=== PATIENT | male | born 1945 | race Caucasian/White ===

== ENCOUNTER 2018-01-26 13:06 | Outpatient (CLI) | payer MEDICARE ==
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
--- NOTE | 2018-01-26 15:28 | CT ---
CT BRAIN WITHOUT CONTRAST: HISTORY: Bilateral headache. FINDINGS: Comparison is made with the exam of 06/16/12. There are changes of cortical atrophy. The ventricular size is appropriate and the basilar cisterns are patent. No evidence of infract, hemorrhage, midline shift, or abnormal extraaxial fluid collecti ons is seen. There are postop changes in the craniocervical region and the cervical spine. No acute abnormalities are seen. There are postop changes in the left ethmoid air cells. IMPRESSION: No CT evidence of acute intracranial process. POS: [facility]
== END 2018-01-26 13:07 | disposition home or self-care (01) ==
LOC: TBSIIMAG 13:06
PROVIDERS: ATTEND Neurological Surgery
DX: R51 Headache (principal); Z98.1 Arthrodesis status
CPT/HCPCS: 70450; 72050

== ENCOUNTER 2018-07-25 10:05 | Day surgery (SDC) | payer MEDICARE ==
[2018-07-25 11:05] LABS: #Basophils 0.1 thou/uL (0.0-0.2); #Lymphocytes 1.6 thou/uL (1.20-3.40); #Monocytes 0.5 thou/uL (0.11-0.59); #Neutrophils 4.8 thou/uL (1.40-6.50); %Basophils 0.8 % (0.0-1.0); %Eosinophils 0.7 % (0.0-10.0); %Lymphocytes 23.2 % (21.0-51.0); %Neutrophils 68.4 % (42.0-75.0); Hemoglobin 12.7 g/dL (14.0-18.0); Mean Corpuscular HGB CONC 32.9 g/dL (32.0-36.0); Mean Corpuscular Hemoglobin 29.3 pg (27.0-31.0); Mean Corpuscular Volume 89.2 fL (78.0-98.0); Mean Platelet Volume 6.9 fL (7.4-10.4); Platelet Count 297 thou/uL (130-400); RBC Distribution Width 12.3 % (11.5-14.5); Red Blood Cell (RBC) Count 4.34 mill/uL (4.70-6.10)
[2018-07-25] MEDS ORDERED: CEFAZOLIN 2 GM/50 ML BAG ONE (11:12)
[2018-07-25 11:22] LABS: Anion Gap 18 mmol/L (10-20); BUN (Urea Nitrogen) 15 mg/dL (8.4-25.7); Calc. Creatinine Clearance 0 mL/min (70-130); Calcium 9.6 mg/dL (7.8-10.44); Carbon Dioxide 20 mmol/L (23-31); Chloride 104 mmol/L (98-107); Estimated GFR-MDRD Greater than 90; Glucose 148 mg/dL (83-110); Potassium 3.6 mmol/L (3.5-5.1); Sodium 138 mmol/L (136-145)
[2018-07-25] MEDS ORDERED: Fentanyl 100 MCG/2 ML VIAL ONE (11:58)
--- NOTE | 2018-07-25 15:06 | EKG ---
Test Reason : PREOP Blood Pressure : / mmHG Vent. Rate : 094 BPM Atrial Rate : 094 BPM P-R Int : 136 ms QRS Dur : 146 ms QT Int : 404 ms P-R-T Axes : 082 082 046 degrees QTc Int : 505 ms Normal sinus rhythm Right bundle branch block Abnormal ECG Confirmed by STACI COELLO ([id number]) on 07/25/2018 3:06:06 PM Referred By: CATHI Confirmed By:STACI COELLO
--- NOTE | 2018-07-25 18:26 | OP ---
DATE OF PROCEDURE: 07/25/2018 SURGEON: Oleg Bedoya MD TARIFF COMPILING CLERK: Gwen Ferrara PA-C PROCEDURE: Replacement of programmable morphine pump. PROCEDURE IN DETAIL: The patient was brought into the operating room and intubated, positioned in la teral decubitus position. The left abdominal region was prepped and draped in sterile fashion and a previous incision for the morphine pump was reopened and the pump identified. The catheter was disco nnected from the pump. The suture was then removed from the catheter. A small part of this cuff had eroded, but the bulk of the cuff was still intact. We reattached the cuff to the pump, secured it w ith a 2-0 silk suture, and then placed the new pump into the pouch without difficulty. This was exte nsively irrigated with Bacitracin irrigation. Vancomycin powder was applied and the wound was then c losed in anatomic layers.
== END 2018-07-25 15:55 | disposition home or self-care (01) ==
LOC: SDC 10:05
PROVIDERS: ATTEND Neurological Surgery
PROC: 0JPT0VZ Removal of Infusion Pump from Trunk Subcutaneous Tissue and Fascia, Open Approach (ICD-10-PCS; principal; 2018-07-25)
PROC: 0JH70VZ Insertion of Infusion Pump into Back Subcutaneous Tissue and Fascia, Open Approach (ICD-10-PCS; 2018-07-25)
DX: Z45.1 Encounter for adjustment and management of infusion pump (principal); G89.29 Other chronic pain; M54.9 Dorsalgia, unspecified; I25.10 Atherosclerotic heart disease of native coronary artery without angina pectoris; E11.22 Type 2 diabetes mellitus with diabetic chronic kidney disease; N18.9 Chronic kidney disease, unspecified; Z79.84 Long term (current) use of oral hypoglycemic drugs; Z79.899 Other long term (current) drug therapy
CPT/HCPCS: 36415; 36416; 80048; 85025; 93005; 93010; C1772; J3010; J3370

== ENCOUNTER 2019-04-11 00:42 | Inpatient (IN) | payer MEDICARE ==
[2019-04-11] MEDS ORDERED: hydrALAZINE 20 MG/ML VIAL SLOW IVP PRN (07:53)
[2019-04-11] MEDS ORDERED: Loratadine 10 MG TAB PO PRN (07:53)
[2019-04-11] MEDS ORDERED: Acetaminophen 325 MG TAB PO PRN (07:53)
[2019-04-11] MEDS ORDERED: Diabetic Tussin 200 MG/10 ML UDCUP PO PRN (07:53)
[2019-04-11] MEDS ORDERED: Dextrose 5% in Water 1,000 ML IV PRN (07:53)
[2019-04-11] MEDS ORDERED: Guaifenesin DM 100-10/5 ML UDCUP PO PRN (07:53)
[2019-04-11] MEDS ORDERED: Calcium Carbonate 500 MG ChewTAB PO PRN (07:53)
[2019-04-11] MEDS ORDERED: Ondansetron PF 4 MG/2 ML Vial IVP PRN (07:53)
[2019-04-11] MEDS ORDERED: Loperamide HCl 2 MG CAP PO PRN (07:53)
[2019-04-11] MEDS ORDERED: Cepastat Lozenges 1 LOZ PO PRN (07:53)
[2019-04-11] MEDS ORDERED: Ondansetron ODT 4 MG TAB PO PRN (07:53)
[2019-04-11] MEDS ORDERED: HYDROcodone/Acetaminophen 5/325 mg Tablet PO PRN (07:53)
[2019-04-11] MEDS ORDERED: Senokot S 8.6-50 MG TAB PO PRN (07:53)
[2019-04-11] MEDS ORDERED: Sodium Chloride 0.65% Nasal 44 ML BOT EA NARE PRN (07:53)
[2019-04-11] MEDS ORDERED: Bisacodyl 10 MG SUPP PR PRN (07:53)
[2019-04-11] MEDS ORDERED: Dextrose 50% Abboject 50 ML SYRINGE SLOW IVP PRN (07:53)
[2019-04-11] MEDS ORDERED: Zolpidem Tartrate 5 MG TAB PO PRN (07:53)
[2019-04-11] MEDS ORDERED: Metoprolol Tartrate 25 MG TAB ONE (10:06)
[2019-04-11] MEDS ORDERED: Cyclobenzaprine 10 MG TAB ONE (10:06)
[2019-04-11] MEDS ORDERED: Famotidine 20 MG TAB ONE (10:06)
[2019-04-11] MEDS ORDERED: HumaLOG 300 UNITS/3 ML VIAL ONE (10:15)
[2019-04-11] MEDS: HumaLOG 300 UNITS/3 ML VIAL SC PRN ×3 (10:19→16:42)
[2019-04-11] MEDS: Tamsulosin HCl 0.4 MG CAP PO SCH (10:23)
[2019-04-11] MEDS: Rosuvastatin 10 MG TAB PO SCH ×2 (10:23→20:17)
[2019-04-11] MEDS: Famotidine 20 MG TAB PO SCH (10:23)
[2019-04-11] MEDS: Cyclobenzaprine 10 MG TAB PO SCH ×3 (10:24→20:20)
[2019-04-11] MEDS: Metoprolol Tartrate 25 MG TAB PO SCH ×2 (10:24→20:16)
[2019-04-11] MEDS ORDERED: PHARMACY TO DOSE VANCOMYCIN IVPB PRN (11:17)
[2019-04-11] MEDS ORDERED: Vancomycin HCl 500 MG in Sodium Chloride 0.9% 100 ML IVPB SCH (11:45)
--- NOTE | 2019-04-11 12:53 | HP ---
PRIMARY CARE PHYSICIAN: Dr. Pearson. REASON FOR ADMISSION: Cellulitis over morphine pump. HISTORY OF PRESENT ILLNESS: A 73-year-old male who has multiple medical problems, who went to [facility] with a complaint of pain and swelling and erythema and warmth over morphine pump site. He was also having vague chest discomfort at [facility]. The patient reports that he had morphine pump placed recently by Dr. Bedoya, and since then he is experiencing little discomfort over his morphine pump site. He noticed some erythema, redness for last 2 to 3 days. He denies any fever or chills. He has diffuse pain, which is controlled with his chronic pain medication. The patient reports that he went to see his primary care physician who prescribed antibiotic therapy, but he never took it. The patient was given vancomycin at other emergency room and subsequently he was transferred to our hospital. REVIEW OF SYSTEMS: CONSTITUTIONAL: Negative for weight loss or gain, ability to conduct usual activities. SKIN: Negative for rash, itching. EYES: Negative for double vision, pain. ENT/MOUTH: Negative for nose bleeding, neck stiffness, pain, tenderness. CARDIOVASCULAR: Negative for palpitations, dyspnea on exertion, orthopnea. RESPIRATORY: Negative for shortness of breath, wheezing, cough, hemoptysis, fever or night sweats. GASTROINTESTINAL: Negative for poor appetite, abdominal pain, heartburn, nausea, vomiting, constipation, or diarrhea. GENITOURINARY: Negative for urgency, frequency, dysuria, nocturia. MUSCULOSKELETAL: Negative for pain, swelling. NEUROLOGIC/PSYCHIATRIC: Negative for anxiety, depression. ALLERGY/IMMUNOLOGIC: Negative for skin rash, bleeding tendency. Please see my HPI for pertinent positives and negatives. All other review of systems reviewed and negative except as mentioned in HPI. PAST MEDICAL HISTORY: Coronary artery disease, hypertension, diabetes type 2, sick sinus syndrome with pacemaker, chronic obstructive pulmonary disease, chronic pain disorder, benign enlargement of prostate, chronic anticoagulation, dyslipidemia. PAST SURGICAL HISTORY: Tonsillectomy, cervical spine surgery, morphine pump placement, pacemaker placement, six lumbar surgeries, appendicectomy. ALLERGIES: NO KNOWN DRUG ALLERGIES. FAMILY HISTORY: No strong family history of premature coronary artery disease, stroke, or cancer. SOCIAL HISTORY: The patient is a former smoker. He denies any illicit drug abuse. He drinks alcohol occasionally. CURRENT HOME MEDICATIONS: 1. Flexeril 10 mg t.i.d. p.r.n. 2. Glipizide 10 mg b.i.d. 3. Morphine pump. 4. Omeprazole 20 mg daily. 5. Oxycodone 10 mg b.i.d. 6. Lyrica 300 mg p.o. b.i.d. 7. Crestor 10 mg p.o. b.i.d. 8. Flomax 0.4 mg p.o. daily. 9. Metoprolol tartrate 12.5 mg twice daily. 10. Xarelto 20 mg p.o. daily. EMERGENCY ROOM COURSE: The patient has received vancomycin. PHYSICAL EXAMINATION: VITAL SIGNS: Currently, blood pressure 129/79, pulse 76, respiratory rate 18, temperature 97.6, saturation 97% on room air. Weight 81.6 kg. GENERAL: The patient is currently alert, awake. No obvious acute distress. HEENT: Head; normocephalic, atraumatic. Eyes; pupils round, reactive to light. Extraocular muscle intact. ENT: Oropharynx within normal limits. Moist mucous membranes. No oral lesion. No pharyngeal erythema. No exudate. NECK: Supple. No JVD. No thyromegaly. No carotid bruit. No jugular venous distention. LUNGS: Clear to auscultation without any rhonchi or rales. CARDIAC: S1, S2. Appears regular without any murmur. No gallop. No rub. ABDOMEN: The patient does have morphine pump on the right lower quadrant which has superficial skin tenderness and erythema and warmth. Some excoriation noted. BACK: Unremarkable. EXTREMITIES: Upper extremities; passive movement of all joints are normal. Lower extremities; no edema. Good distal pulsation. SKIN: As mentioned above. The patient does have some excoriation, mild warmth and erythema over morphine pump site. HEMATOLOGIC: No lymphadenopathy. PSYCHIATRIC: Normal affect. SIGNIFICANT LABORATORY DATA: CBC: WBC 7.4, hemoglobin 10.3, platelets 246. BMP: Sodium 140, potassium 4.0, chloride 105, carbon dioxide 21, BUN 24, creatinine 1.58, glucose 341, calcium 8.4. LFT: AST 11, ALT 9, alkaline phosphatase 89, albumin 3.7. Troponin 0.013. BNP 28.1. IMAGING DATA: Chest x-ray based on my review, no acute cardiopulmonary process. ASSESSMENT AND PLAN: 1. Acute kidney failure. The patient's creatinine is elevated. At this point, we will continue IV fluid at 75 mL/hour and we will repeat BMP tomorrow. 2. Cellulitis over morphine pump site. The patient does have erythema, excoriation, and some tenderness and warmth. The patient does not have any fever. Does not have any leukocytosis. We will check CRP tomorrow. We will consult Dr. Umaña for his opinion. Meanwhile, I will continue with vancomycin. 3. Diabetes type 2, not well controlled. We will start glipizide 10 mg p.o. b.i.d. and insulin as per sliding scale protocol. Diabetic diet will be given. 4. Benign enlargement of prostate. Flomax 0.4 mg p.o. daily. 5. Dyslipidemia. Continue Crestor 10 mg b.i.d. 6. Chronic anticoagulation. Continue Xarelto 20 mg p.o. daily. 7. Chronic pain disorder. The patient will continue morphine pump, oxycodone, Lyrica as per home dosage. 8. Deep venous thrombosis prophylaxis. The patient is already on Xarelto therapy. 9. Gastrointestinal prophylaxis. Pepcid 20 mg p.o. b.i.d. CODE STATUS: The patient is full code. The patient does not have any surrogate decision maker. DISPOSITION PLAN: Based on clinical course, we are expecting the patient's stay in hospital more than 2 midnights. Plan of care discussed with the patient in detail. Job ID: [id number]
[2019-04-11] MEDS: oxyCODONE 5 MG TAB PO SCH ×2 (13:39→20:20)
[2019-04-11] MEDS: Pregabalin 75 MG CAP PO SCH ×2 (13:42→20:15)
[2019-04-11] MEDS: Sodium Chloride 0.9% 1,000 ML IV SCH (13:46)
[2019-04-11] MEDS: glipiZIDE 10 MG TAB PO SCH (15:06)
[2019-04-11] MEDS: Rivaroxaban 10 MG TAB PO SCH (16:43)
[2019-04-11] MEDS ORDERED: Nystatin Powder 15 GM BOT TOP PRN (17:40)
[2019-04-11] MEDS: Vancomycin HCl 1.5 GM in Sodium Chloride 0.9% 250 ML 300 ML IVPB SCH (20:15)
[2019-04-12] MEDS: Sodium Chloride 0.9% 1,000 ML IV SCH ×3 (01:42→20:01)
[2019-04-12 06:54] LABS: #Eosinphils 0.3 thou/uL (0.0-0.7); #Lymphocytes 2.8 thou/uL (1.20-3.40); #Monocytes 0.6 thou/uL (0.11-0.59); #Neutrophils 4.4 thou/uL (1.40-6.50); %Basophils 0.6 % (0.0-1.0); %Eosinophils 4.2 % (0.0-10.0); %Lymphocytes 33.8 % (21.0-51.0); %Monocytes 7.7 % (0.0-10.0); %Neutrophils 53.7 % (42.0-75.0); Hemoglobin 10.6 g/dL (14.0-18.0); Mean Corpuscular HGB CONC 31.1 g/dL (32.0-36.0); Mean Corpuscular Volume 86.7 fL (78.0-98.0); Mean Platelet Volume 7.6 fL (7.4-10.4); Platelet Count 271 thou/uL (130-400); Red Blood Cell (RBC) Count 3.92 mill/uL (4.70-6.10); White Blood Cell (WBC) Count 8.2 thou/uL (4.8-10.8)
[2019-04-12 07:13] LABS: Anion Gap 12 mmol/L (10-20); BUN (Urea Nitrogen) 14 mg/dL (8.4-25.7); Calc. Creatinine Clearance 32 mL/min (70-130); Calcium 9.3 mg/dL (7.8-10.44); Carbon Dioxide 23 mmol/L (23-31); Chloride 111 mmol/L (98-107); Estimated GFR-MDRD 69; Glucose 116 mg/dL (83-110); Potassium 4.3 mmol/L (3.5-5.1); Sodium 142 mmol/L (136-145)
[2019-04-12] MEDS: glipiZIDE 10 MG TAB PO SCH ×2 (09:33→16:30)
[2019-04-12] MEDS: Rosuvastatin 10 MG TAB PO SCH ×3 (09:33→20:08)
[2019-04-12] MEDS: Cyclobenzaprine 10 MG TAB PO SCH ×3 (09:33→20:07)
[2019-04-12] MEDS: Tamsulosin HCl 0.4 MG CAP PO SCH (09:33)
[2019-04-12] MEDS: Famotidine 20 MG TAB PO SCH (09:33)
[2019-04-12] MEDS: Metoprolol Tartrate 25 MG TAB PO SCH ×2 (09:34→20:07)
[2019-04-12] MEDS: oxyCODONE 5 MG TAB PO SCH ×2 (09:34→20:06)
[2019-04-12] MEDS: Pregabalin 75 MG CAP PO SCH ×2 (09:35→20:05)
--- NOTE | 2019-04-12 12:09 | PDOC.PN ---
- Subjective Encounter Start Date: 04/12/19 Encounter Start Time: 08:40 -: old records requested/rev Patient seen and examined. No new complaints. No overnight events - Objective Resuscitation Status - Order Detail: 04/11/19 07:53 Resuscitation Status Routine Resuscitation Status: FULL: Full Resuscitation MAR Reviewed: Yes Vital Signs & Weight: Vital Signs (12 hours) Temp Pulse Resp BP BP Pulse Ox 04/12/19 09:30 92 L 04/12/19 07:50 97.6 F 83 16 120/82 92 L 04/12/19 04:00 98.1 F 94 18 118/70 93 L 04/12/19 00:46 97.3 F L 98 20 121/70 Weight Weight 81 lb 6 oz I&O: 04/11/19 04/12/19 04/13/19 06:59 06:59 06:59 Intake Total 1600 Balance 1600 Result Diagrams: 04/12/19 06:11 04/12/19 06:11 Additional Labs: Accuchecks 04/12/19 04/11/19 04/11/19 04:47 19:45 16:35 POC Glucose 107 109 425 H 04/11/19 15:03 POC Glucose 507 H Phys Exam - Physical Examination Constitutional: NAD HEENT: PERRLA, moist MMs, sclera anicteric Neck: no JVD, supple Respiratory: no wheezing, no rales, no rhonchi Cardiovascular: RRR, no significant murmur, no rub Gastrointestinal: soft, non-tender, no distention, positive bowel sounds wound covered with dressing Musculoskeletal: no edema, pulses present Neurological: non-focal, normal sensation, moves all 4 limbs Lymphatic: no nodes Psychiatric: normal affect, A&O x 3 Skin: no rash, normal turgor Dx/Plan (1) YOSI (acute kidney injury) Code(s): N17.9 - ACUTE KIDNEY FAILURE, UNSPECIFIED Status: Acute (2) Cellulitis Code(s): L03.90 - CELLULITIS, UNSPECIFIED Status: Acute (3) Anemia, normocytic normochromic Code(s): D64.9 - ANEMIA, UNSPECIFIED Status: Chronic (4) BPH (benign prostatic hyperplasia) Code(s): N40.0 - BENIGN PROSTATIC HYPERPLASIA WITHOUT LOWER URINRY TRACT SYMP Status: Chronic (5) Chronic anticoagulation Code(s): Z79.01 - ALF (CURRENT) USE OF ANTICOAGULANTS Status: Chronic (6) Chronic pain disorder Code(s): G89.4 - CHRONIC PAIN SYNDROME Status: Chronic (7) Chronic stage c diastolic heart failure Code(s): I50.32 - CHRONIC DIASTOLIC (CONGESTIVE) HEART FAILURE Status: Chronic (8) Diabetes type 2, uncontrolled Code(s): E11.65 - TYPE 2 DIABETES MELLITUS WITH HYPERGLYCEMIA Status: Chronic (9) Dyslipidemia Code(s): E78.5 - HYPERLIPIDEMIA, UNSPECIFIED Status: Chronic (10) GERD (gastroesophageal reflux disease) Code(s): K21.9 - GASTRO-ESOPHAGEAL REFLUX DISEASE WITHOUT ESOPHAGITIS Status: Chronic (11) Pacemaker Code(s): Z95.0 - PRESENCE OF CARDIAC PACEMAKER Status: Chronic - Plan cont current plan of care, continue antibiotics * continue vancomycin * follow culture * ID consulted * wound care * medication reconciled * medication reviewed as below * symptomatic treatment * pain controlled. Review of Systems - Review of Systems ENT: negative: Ear Pain, Ear Discharge, Nose Pain, Nose Discharge, Nose Congestion, Mouth Pain, Mouth Swelling, Throat Pain, Throat Swelling, Other Respiratory: negative: Cough, Dry, Shortness of Breath, Hemoptysis, SOB with Excertion, Pleuritic Pain, Sputum, Wheezing Cardiovascular: negative: chest pain, palpitations, orthopnea, paroxysmal nocturnal dyspnea, edema, light headedness, other Gastrointestinal: negative: Nausea, Vomiting, Abdominal Pain, Diarrhea, Constipation, Melena, Hematochezia, Other Genitourinary: negative: Dysuria, Frequency, Incontinence, Hematuria, Retention , Other Musculoskeletal: negative: Neck Pain, Shoulder Pain, Arm Pain, Back Pain, Hand Pain, Leg Pain, Foot Pain, Other - Medications/Allergies Allergies/Adverse Reactions: Allergies Allergy/AdvReac Type Severity Reaction Status Date / Time No Known Allergies Allergy Unverified 03/24/19 07:58 Medications: Current Medications Acetaminophen (Tylenol) 650 mg PO Q4H PRN PRN Reason: Headache/Fever/Mild Pain (1-3) Hydrocodone Bitart/Acetaminophen ([place] 5/325) 1 tab PO Q4H PRN PRN Reason: Moderate Pain (4-6) Bisacodyl (Dulcolax) 10 mg CO DAILYPRN PRN PRN Reason: Constipation Calcium Carbonate (Tums) 1,000 mg PO Q4H PRN PRN Reason: Heartburn or Indigestion Cyclobenzaprine HCl (Flexeril) 10 mg PO TID [facility] Last Admin: 04/12/19 09:33 Dose: 10 mg Dextrose/Water (Dextrose 50%) 25 gm SLOW IVP PRN PRN PRN Reason: Hypoglycemia Famotidine (Pepcid) 20 mg PO Q24HR [facility] Last Admin: 04/12/19 09:33 Dose: 20 mg Glipizide (Glucotrol) 10 mg PO BID-AC [facility] Last Admin: 04/12/19 09:33 Dose: 10 mg Glucagon (Glucagon) 1 mg IM PRN PRN PRN Reason: Hypoglycemia Guaifenesin (Robitussin Sf) 200 mg PO Q4H PRN PRN Reason: Cough Guaifenesin/Dextromethorphan (Robitussin Dm) 15 ml PO Q4H PRN PRN Reason: Cough Hydralazine HCl (Apresoline) 10 mg SLOW IVP Q4H PRN PRN Reason: SBP > 180 and HR < 70 Dextrose/Water (D5w) 1,000 mls @ 0 mls/hr IV .Q0M PRN PRN Reason: Hypoglycemia Vancomycin HCl 1.5 gm/ Sodium (Chloride) 300 mls @ 200 mls/hr IVPB 2200 [facility] Last Admin: 04/11/19 20:15 Dose: 300 mls Sodium Chloride (Normal Saline 0.9%) 1,000 mls @ 75 mls/hr IV .[id number] [facility] Last Admin: 04/12/19 01:42 Dose: 1,000 mls Insulin Human Lispro (Humalog) 0 units SC .MODERATE SLIDING SC PRN PRN Reason: Moderate Correctional Scale Last Admin: 04/11/19 16:42 Dose: 10 unit Insulin Human Lispro (Humalog) 0 units SC .BEDTIME SLIDING SC PRN PRN Reason: Bedtime Correctional Scale Loperamide HCl (Imodium) 2 mg PO PRN PRN PRN Reason: Diarrhea/Loose Stools Loratadine (Claritin) 10 mg PO DAILYPRN PRN PRN Reason: Sinus Symptoms Metoprolol Tartrate (Lopressor) 12.5 mg PO BID [facility] Last Admin: 04/12/19 09:34 Dose: 12.5 mg Miscellaneous Medication (Pharmacy To Dose) 1 each IVPB .VANCOMYCIN PRN PRN Reason: LABS Nystatin (Mycostatin Powder) 0 gm TOP PRN PRN PRN Reason: . Ondansetron HCl (Zofran Odt) 4 mg PO Q6H PRN PRN Reason: Nausea/Vomiting Ondansetron HCl (Zofran) 4 mg IVP Q6H PRN PRN Reason: Nausea/Vomiting Oxycodone HCl (Oxycodone Ir) 10 mg PO BID [facility] Last Admin: 04/12/19 09:34 Dose: 10 mg Pneumococcal 13-Valent Conj Vacc (Prevnar) 0.5 ml IM .ONCE ONE Stop: 04/12/19 16:46 Pregabalin (Lyrica) 300 mg PO BID [facility] Last Admin: 04/12/19 09:35 Dose: 300 mg Rivaroxaban (Xarelto) 20 mg PO 1800 [facility] Last Admin: 04/11/19 16:43 Dose: 20 mg Rosuvastatin Calcium (Crestor) 10 mg PO QAM [facility] Last Admin: 04/12/19 09:33 Dose: 10 mg Rosuvastatin Calcium (Crestor) 10 mg PO HS [facility] Last Admin: 04/11/19 20:17 Dose: 10 mg Senna/Docusate Sodium (Senokot S) 2 tab PO BID PRN PRN Reason: Constipation Sodium Chloride ([place] Nasal [place] 0.65%) 0 ml EA NARE QIDPRN PRN PRN Reason: Nasal Congestion Tamsulosin HCl (Flomax) 0.4 mg PO QAM [facility] Last Admin: 04/12/19 09:33 Dose: 0.4 mg Throat Lozenges (Cepastat Lozenges) 1 ollie PO Q2H PRN PRN Reason: Sore Throat Zolpidem Tartrate (Ambien) 5 mg PO HSPRN PRN PRN Reason: Insomnia
[2019-04-12] MEDS: HumaLOG 300 UNITS/3 ML VIAL SC PRN ×3 (12:48→21:35)
--- NOTE | 2019-04-12 13:31 | CON ---
DATE OF CONSULTATION: 04/12/2019 REASON FOR CONSULTATION: Infected pain pump. HISTORY OF PRESENT ILLNESS: A 73-year-old with history of chronic smoking, coronary artery disease, ischemic cardiomyopathy, and pacemaker, as well as chronic low back pain with morphine pump as management, who has had problems with the pain pump site with inflammatory changes and drainage. He was given antimicrobial therapy and told by his surgeon that most likely would have to be removed. He went to [facility] because of pain and drainage persistence and swelling. Initial findings with essentially normal vital signs. The exam was remarkable for the inflammatory changes around the pump, right lateral abdomen. Initial labs with a white cell count 7.4, platelets 246, and creatinine 1.58. There was an increase in creatinine compared with prior visits. Culture from the drainage thus far has yielded mixed culture with pending further identification of the organisms. Currently, Mr. Feldman is in no distress. He denies any headaches. No visual symptoms, sore throat, odynophagia, or dysphagia. No cough, sputum production, or chest pain. No abdominal pain except for the site, where the pain pump is located. No urinary symptoms. No diarrhea or bleeding. He is able to ambulate without difficulty. PAST MEDICAL HISTORY: Coronary artery disease, ischemic cardiomyopathy, pacemaker, hypertension, type 2 diabetes, COPD, chronic low back pain, BPH, and chronic anticoagulation. PAST SURGICAL HISTORY: Morphine pump placement, pacemaker placement, lumbar laminectomy and fusion, and appendectomy. ALLERGIES: NONE. FAMILY HISTORY: Noncontributory. SOCIAL HISTORY: Former smoker. CURRENT MEDICATIONS: 1. Tylenol. 2. [place]. 3. Dulcolax. 4. Tums. 5. Flexeril. 6. Pepcid. 7. Glucotrol. 8. Insulin. 9. Xarelto. 10. Crestor. 11. Vancomycin. PHYSICAL EXAMINATION: VITAL SIGNS: T-max 98.1 and O2 saturation 92. Other vital signs normal. SKIN: Shows the pump in the right lateral abdomen. The area is tender to palpation. There is one or two small orifices with draining purulent exudate in the mid medial aspect of the pain pump skin site. The patient has a peripheral IV access and is urinating in the urinal. No lymphadenopathy. HEENT: Ocular movements conjugate. Oral cavity with numerous missing teeth. NECK: Supple. No jugular vein distention or carotid bruits. LUNGS: Symmetric clear breath sounds. HEART: S1 and S2. Regular rate. No S3 or S4. Pacemaker site appears normal. The pain pump site has the findings described above. It is tender to palpation. GENITAL: Normal. EXTREMITIES: Osteoarthrosis in knees and ankles. Pulses 1+ in dorsalis pedis. Plantar responses are flexor. No clonus. Strength in upper and lower extremities is 5/5. Cognitive function appears to be intact. LABORATORY DATA: His white cell count 8.2, hemoglobin 10.6, MCV 86, platelets normal, and differential normal. Sodium 142 and creatinine 1.05. CRP 3.95. ASSESSMENT: Coronary artery disease, ischemic cardiomyopathy, sick sinus syndrome with pacemaker, chronic low back pain with management with morphine pain pump and inflammatory changes with sinus tract, which most likely connects to the pain pump pocket. DISCUSSION: The patient will require removal of the pain pump as had already been stated by Dr. Bedoya, seems like he is not in town and we will have to consult one of his colleagues to remove the device. The patient is at risk for seeding of the pacemaker through the blood stream and I would believe that it would be beneficial for him to have this device removed as soon as possible after that and cultures and healing by second intention with negative pressure dressing most likely to be utilized plus hopefully oral antimicrobial therapy. Job ID: [id number]
[2019-04-12] MEDS ORDERED: Prevnar 13-Val Conj/PF 0.5 ML SYRINGE IM ONE (16:45)
[2019-04-12] MEDS: Rivaroxaban 10 MG TAB PO SCH (17:36)
[2019-04-12] MEDS: Vancomycin HCl 1.5 GM in Sodium Chloride 0.9% 250 ML 300 ML IVPB SCH (20:11)
--- NOTE | 2019-04-12 22:45 | CON ---
DATE OF CONSULTATION: HISTORY OF PRESENT ILLNESS: Mr. Feldman is 73-year-old male who is well known to our neurosurgical group as a patient of Dr. Bedoya. He has operated on him for cervical fracture as well as replaced the pain pump in late 2017. The patient was at the [facility] yesterday for abdominal pain and worsening discharge over his pain pump and was transferred to [facility] in [place]. Neurosurgery has been consulted by the infectious disease group. Dr. Bedoya and Gwen JOLLEY saw Mr. Feldman in the office in late February for some neck pain. However, there was a small amount of dehiscence over the surgical site for the pain pump that was noted. They recommended having it removed. However, the patient refused even with counseling and the risks involved with keeping the pain pump in. He was given antibiotics and a 2-week followup was scheduled with Dr. Bedoya on April 05. The patient did not show for that appointment, reported to the emergency room yesterday. The patient denies any fever or chills. No headache. No nausea or vomiting. He states that he has significant tenderness over the pain pump itself and there is worsening dehiscence and purulent discharge from the incision. The patient is on Xarelto and has a pacemaker. There is a risk of infection seeding to the pacemaker removing as soon as possible safely is advisable once the Xarelto has been out of the system. The patient is moving all 4 extremities well. He has some known numbness and tingling in his left pinky and middle fingers and right thumb. He has decreased strength in plantar flexion of the right lower extremity. Otherwise, the patient has no decreased range of motion or strength. REVIEW OF SYSTEMS: A 10-point review of systems has been completed and is negative other than stated in the above HPI. PAST MEDICAL HISTORY: Coronary artery disease, ischemic cardiomyopathy, pacemaker placement, hypertension, diabetes type 2, COPD, chronic low back pain, BPH, and chronic anticoagulation. PAST SURGICAL HISTORY: Morphine pump placement, pacemaker placement, lumbar laminectomy and fusion, appendectomy, cervical fusion. ALLERGIES: NO KNOWN DRUG ALLERGIES. SOCIAL HISTORY: The patient denies alcohol use. Denies drug use. He is a tobacco user. CURRENT MEDICATIONS: 1. Tylenol. 2. [place]. 3. Dulcolax. 4. Tums. 5. Flexeril. 6. Pepcid. 7. Glucotrol. 8. Insulin. 9. Xarelto. 10. Crestor. 11. Vancomycin. PHYSICAL EXAMINATION: VITAL SIGNS: Temperature 97.6, heart rate 79, respirations 18, O2 saturations 93% on room air, blood pressure 118/72. CONSTITUTIONAL: Well appearing, well nourished, alert. No apparent visible distress. Nontoxic. HEENT: Head is normocephalic and atraumatic. Pupils are equal, round, and reactive to light. Extraocular movements are intact. Hearing is intact. Moist mucous membranes. RESPIRATIONS: Normal work of breathing on room air. EXTREMITIES: The patient is moving all 4 extremities well. There is normal range of motion, normal strength, 5/5, deltoids, biceps, triceps, stock puller strength, 5/5 in hip flexion, hip extension, knee flexion, knee extension, dorsiflexion, decreased plantar flexion on the right. ABDOMEN: The patient has tenderness in the right lower abdominal over the placement of morphine pain pump. There is incisional dehiscence in multiple areas as well as significant purulent discharge from the incision. NEUROLOGIC: The patient is awake, alert, oriented x3. Normal attention. Speech is spontaneous and fluent. Normal fund of knowledge. There is no lateralizing motor or sensory deficit. LABORATORY DATA: White blood cell 8.2. CRP 3.95. ASSESSMENT AND PLAN: Mr. Feldman has been admitted to the hospital. Infectious Disease has been consulted and Neurosurgery. He is a 73-year-old male with an infective pain pump that is complicated by him being on Xarelto. Blood thinners need to be stopped before we can safely remove. Once it is safe for him to undergo surgery, we will do so and remove the pain pump. We will need to have Pain Management work very closely once it is removed to prevent any morphine withdrawal as he has had this pain pump for years. Any further questions, please contact neurosurgery group. Job ID: [id number]
[2019-04-13] MEDS: HumaLOG 300 UNITS/3 ML VIAL SC PRN ×3 (05:15→18:05)
[2019-04-13] MEDS: Metoprolol Tartrate 25 MG TAB PO SCH ×2 (08:10→21:25)
[2019-04-13] MEDS: Enoxaparin Sodium 40 MG/0.4 ML SYRINGE SC SCH (08:10)
[2019-04-13] MEDS: Tamsulosin HCl 0.4 MG CAP PO SCH (08:10)
[2019-04-13] MEDS: Cyclobenzaprine 10 MG TAB PO SCH ×3 (08:11→21:25)
[2019-04-13] MEDS: Rosuvastatin 10 MG TAB PO SCH ×2 (08:11→21:23)
[2019-04-13] MEDS: glipiZIDE 10 MG TAB PO SCH ×2 (08:11→18:05)
[2019-04-13] MEDS: Pregabalin 75 MG CAP PO SCH ×2 (08:12→21:23)
[2019-04-13] MEDS: oxyCODONE 5 MG TAB PO SCH ×2 (08:13→21:24)
[2019-04-13] MEDS: Famotidine 20 MG TAB PO SCH (08:14)
--- NOTE | 2019-04-13 11:54 | PDOC.PN ---
- Subjective Encounter Start Date: 04/13/19 Encounter Start Time: 08:40 Patient seen and examined. No new complaints. No overnight events - Objective Resuscitation Status - Order Detail: 04/11/19 07:53 Resuscitation Status Routine Resuscitation Status: FULL: Full Resuscitation MAR Reviewed: Yes Vital Signs & Weight: Vital Signs (12 hours) Temp Pulse Resp BP Pulse Ox 04/13/19 08:10 97 04/13/19 07:51 97.5 F L 79 18 147/77 H 97 Weight Weight 185 lb I&O: 04/12/19 04/13/19 04/14/19 06:59 06:59 06:59 Intake Total 1600 3525 Output Total 2200 Balance 1600 1325 Result Diagrams: 04/12/19 06:11 04/12/19 06:11 Additional Labs: Accuchecks 04/13/19 04/13/19 04/12/19 11:11 05:15 21:07 POC Glucose 253 H 220 H 306 H 04/12/19 04/12/19 16:04 11:53 POC Glucose 185 H 248 H Phys Exam - Physical Examination Constitutional: NAD HEENT: PERRLA, moist MMs, sclera anicteric Neck: no JVD, supple Respiratory: no wheezing, no rales, no rhonchi Cardiovascular: RRR, no significant murmur, no rub Gastrointestinal: soft, non-tender, no distention, positive bowel sounds cellulitis over morphin pump site Musculoskeletal: no edema, pulses present Neurological: non-focal, normal sensation, moves all 4 limbs Lymphatic: no nodes Psychiatric: normal affect, A&O x 3 Skin: no rash, normal turgor Dx/Plan (1) YOSI (acute kidney injury) Code(s): N17.9 - ACUTE KIDNEY FAILURE, UNSPECIFIED Status: Acute (2) Cellulitis Code(s): L03.90 - CELLULITIS, UNSPECIFIED Status: Acute Qualifiers: Site of cellulitis of trunk: abdominal wall (3) Anemia, normocytic normochromic Code(s): D64.9 - ANEMIA, UNSPECIFIED Status: Chronic (4) BPH (benign prostatic hyperplasia) Code(s): N40.0 - BENIGN PROSTATIC HYPERPLASIA WITHOUT LOWER URINRY TRACT SYMP Status: Chronic (5) Chronic anticoagulation Code(s): Z79.01 - MCC (CURRENT) USE OF ANTICOAGULANTS Status: Chronic (6) Chronic pain disorder Code(s): G89.4 - CHRONIC PAIN SYNDROME Status: Chronic (7) Chronic stage c diastolic heart failure Code(s): I50.32 - CHRONIC DIASTOLIC (CONGESTIVE) HEART FAILURE Status: Chronic (8) Diabetes type 2, uncontrolled Code(s): E11.65 - TYPE 2 DIABETES MELLITUS WITH HYPERGLYCEMIA Status: Chronic (9) Dyslipidemia Code(s): E78.5 - HYPERLIPIDEMIA, UNSPECIFIED Status: Chronic (10) GERD (gastroesophageal reflux disease) Code(s): K21.9 - GASTRO-ESOPHAGEAL REFLUX DISEASE WITHOUT ESOPHAGITIS Status: Chronic (11) Pacemaker Code(s): Z95.0 - PRESENCE OF CARDIAC PACEMAKER Status: Chronic - Plan cont current plan of care, continue antibiotics * Xarelto off for 2 days * will need pump removal * medication reviewed as below * symptomatic treatment * continue vancomycin * ID and neurosurgery recommendation appreciated . Review of Systems - Review of Systems ENT: negative: Ear Pain, Ear Discharge, Nose Pain, Nose Discharge, Nose Congestion, Mouth Pain, Mouth Swelling, Throat Pain, Throat Swelling, Other Respiratory: negative: Cough, Dry, Shortness of Breath, Hemoptysis, SOB with Excertion, Pleuritic Pain, Sputum, Wheezing Cardiovascular: negative: chest pain, palpitations, orthopnea, paroxysmal nocturnal dyspnea, edema, light headedness, other Gastrointestinal: negative: Nausea, Vomiting, Abdominal Pain, Diarrhea, Constipation, Melena, Hematochezia, Other Genitourinary: negative: Dysuria, Frequency, Incontinence, Hematuria, Retention , Other Musculoskeletal: negative: Neck Pain, Shoulder Pain, Arm Pain, Back Pain, Hand Pain, Leg Pain, Foot Pain, Other - Medications/Allergies Allergies/Adverse Reactions: Allergies Allergy/AdvReac Type Severity Reaction Status Date / Time No Known Allergies Allergy Unverified 03/24/19 07:58 Medications: Current Medications Acetaminophen (Tylenol) 650 mg PO Q4H PRN PRN Reason: Headache/Fever/Mild Pain (1-3) Last Admin: 04/12/19 20:05 Dose: 650 mg Hydrocodone Bitart/Acetaminophen ([place] 5/325) 1 tab PO Q4H PRN PRN Reason: Moderate Pain (4-6) Bisacodyl (Dulcolax) 10 mg [place] DAILYPRN PRN PRN Reason: Constipation Calcium Carbonate (Tums) 1,000 mg PO Q4H PRN PRN Reason: Heartburn or Indigestion Cyclobenzaprine HCl (Flexeril) 10 mg PO TID [facility] Last Admin: 04/13/19 08:11 Dose: 10 mg Dextrose/Water (Dextrose 50%) 25 gm SLOW IVP PRN PRN PRN Reason: Hypoglycemia Enoxaparin Sodium (Lovenox) 40 mg SC 0900 [facility] Last Admin: 04/13/19 08:10 Dose: 40 mg Famotidine (Pepcid) 20 mg PO Q24HR [facility] Last Admin: 04/13/19 08:14 Dose: 20 mg Glipizide (Glucotrol) 10 mg PO BID-AC [facility] Last Admin: 04/13/19 08:11 Dose: 10 mg Glucagon (Glucagon) 1 mg IM PRN PRN PRN Reason: Hypoglycemia Guaifenesin (Robitussin Sf) 200 mg PO Q4H PRN PRN Reason: Cough Guaifenesin/Dextromethorphan (Robitussin Dm) 15 ml PO Q4H PRN PRN Reason: Cough Hydralazine HCl (Apresoline) 10 mg SLOW IVP Q4H PRN PRN Reason: SBP > 180 and HR < 70 Dextrose/Water (D5w) 1,000 mls @ 0 mls/hr IV .Q0M PRN PRN Reason: Hypoglycemia Vancomycin HCl 1.5 gm/ Sodium (Chloride) 300 mls @ 200 mls/hr IVPB 2200 [facility] Last Admin: 04/12/19 20:11 Dose: 300 mls Sodium Chloride (Normal Saline 0.9%) 1,000 mls @ 75 mls/hr IV .[id number] [facility] Last Admin: 04/12/19 20:01 Dose: 1,000 mls Insulin Human Lispro (Humalog) 0 units SC .MODERATE SLIDING SC PRN PRN Reason: Moderate Correctional Scale Last Admin: 04/13/19 05:15 Dose: 4 unit Insulin Human Lispro (Humalog) 0 units SC .BEDTIME SLIDING SC PRN PRN Reason: Bedtime Correctional Scale Last Admin: 04/12/19 21:35 Dose: 4 unit Loperamide HCl (Imodium) 2 mg PO PRN PRN PRN Reason: Diarrhea/Loose Stools Loratadine (Claritin) 10 mg PO DAILYPRN PRN PRN Reason: Sinus Symptoms Metoprolol Tartrate (Lopressor) 12.5 mg PO BID [facility] Last Admin: 04/13/19 08:10 Dose: 12.5 mg Miscellaneous Medication (Pharmacy To Dose) 1 each IVPB .VANCOMYCIN PRN PRN Reason: LABS Nystatin (Mycostatin Powder) 0 gm TOP PRN PRN PRN Reason: . Ondansetron HCl (Zofran Odt) 4 mg PO Q6H PRN PRN Reason: Nausea/Vomiting Ondansetron HCl (Zofran) 4 mg IVP Q6H PRN PRN Reason: Nausea/Vomiting Oxycodone HCl (Oxycodone Ir) 10 mg PO BID [facility] Last Admin: 04/13/19 08:13 Dose: 10 mg Pregabalin (Lyrica) 300 mg PO BID [facility] Last Admin: 04/13/19 08:12 Dose: 300 mg Rosuvastatin Calcium ([facility]or) [facility] Last Admin: 04/13/19 08:11 Dose: 10 mg Rosuvastatin Calcium (Crestor) [address] [facility] Last Admin: 04/12/19 20:08 Dose: 10 mg Senna/Docusate Sodium (Senokot S) 2 tab PO BID PRN PRN Reason: Constipation Sodium Chloride ([place] Nasal [place] 0.65%) 0 ml EA NARE QIDPRN PRN PRN Reason: Nasal Congestion Tamsulosin HCl (Flomax) 0.4 mg PO QAM [facility] Last Admin: 04/13/19 08:10 Dose: 0.4 mg Throat Lozenges (Cepastat Lozenges) 1 ollie PO Q2H PRN PRN Reason: Sore Throat Zolpidem Tartrate (Ambien) 5 mg PO HSPRN PRN PRN Reason: Insomnia
[2019-04-13] MEDS: Sodium Chloride 0.9% 1,000 ML IV SCH ×3 (11:57→21:57)
--- NOTE | 2019-04-13 17:30 | PRG ---
DATE OF SERVICE: 04/13/2019 I personally interviewed and examined the patient. I agree with documentation of Kelly Hanley PA-C dated 04/13/2019. Briefly, Umesh Feldman is a patient of Dr. Carmona, who has had multiple operations done on the spine and has chronic pain. For his chronic pain, he has an intrathecal morphine pump that he has used successfully for quite a number of years. The pump is now affected and we have been asked to remove it. I agree that removing it is the appropriate treatment. However, there are two risks that are significant in this patient for possible paralysis following the operation. First, he is on one of the newer anticoagulants, which significantly increases the risk of bleeding with the operation and as the pump is removed, there was a small CSF leak at the exit site, decrease in the intrathecal CSF pressure, so epidural hematoma is high risk. Epidural hematoma in the spine can become symptomatic quickly and cause paralysis following the operation. It is my preference not to do that. Second is, intrathecal medication pumps are notorious for developing a catheter granuloma at the tip of the catheter. We have to look for this before removal. If the catheter tip granuloma is too large and we pulled it through the stenotic area of the spine, where it can cause paralysis from pressure. Over the weekend, we will talk to Radiology as to whether the implanted pacemaker is compatible with MR scanning. If it is, we will get an MRI scan of the thoracic and lumbar spine looking in for catheter-tip granuloma. If, however, it is incompatible that a myelogram will need to be ordered. The radiologist will need to feel comfortable about the risks of the myelogram vis-a-vis the blood thinner. Once we awaited appropriate number of days for them to do the myelogram, then we will have the information to planned surgery. Hopefully, this can be done over the weekend so that he is ready for his operation on the evening or Wednesday. We will continue to follow him in the hospital. Job ID: [id number] MTDD
[2019-04-13 21:26] LABS: Vancomycin, Trough 10.4 ug/mL
[2019-04-13] MEDS: Vancomycin HCl 1 GM in Premix Bag 1 BAG IVPB SCH (21:56)
[2019-04-14] MEDS: Sodium Chloride 0.9% 1,000 ML IV SCH ×2 (04:57→17:03)
[2019-04-14] MEDS: Cyclobenzaprine 10 MG TAB PO SCH ×3 (08:23→20:14)
[2019-04-14] MEDS: glipiZIDE 10 MG TAB PO SCH ×2 (08:23→16:18)
[2019-04-14] MEDS: oxyCODONE 5 MG TAB PO SCH ×2 (08:23→20:15)
[2019-04-14] MEDS: Rosuvastatin 10 MG TAB PO SCH ×2 (08:24→20:14)
[2019-04-14] MEDS: Pregabalin 75 MG CAP PO SCH ×2 (08:24→20:15)
[2019-04-14] MEDS: Tamsulosin HCl 0.4 MG CAP PO SCH (08:25)
[2019-04-14] MEDS: Metoprolol Tartrate 25 MG TAB PO SCH ×2 (08:25→20:14)
[2019-04-14] MEDS: Famotidine 20 MG TAB PO SCH (08:31)
[2019-04-14] MEDS: Enoxaparin Sodium 40 MG/0.4 ML SYRINGE SC SCH (08:31)
[2019-04-14] MEDS: Vancomycin HCl 1 GM in Premix Bag 1 BAG IVPB SCH ×2 (09:50→21:08)
--- NOTE | 2019-04-14 11:47 | PDOC.PN ---
- Subjective Encounter Start Date: 04/14/19 Encounter Start Time: 08:30 Patient seen and examined. No new complaints. No overnight events - Objective Resuscitation Status - Order Detail: 04/11/19 07:53 Resuscitation Status Routine Resuscitation Status: FULL: Full Resuscitation MAR Reviewed: Yes Vital Signs & Weight: Vital Signs (12 hours) Temp Pulse Resp BP BP Pulse Ox 04/14/19 08:00 97.5 F L 94 18 135/76 94 L 04/14/19 06:57 71 04/14/19 04:00 97.8 F 20 155/77 H 93 L 04/14/19 01:03 97.7 F 67 20 139/69 95 Weight Weight 185 lb I&O: 04/13/19 04/14/19 04/15/19 06:59 06:59 06:59 Intake Total 3525 3040 360 Output Total 2200 2200 Balance 1325 840 360 Result Diagrams: 04/12/19 06:11 04/12/19 06:11 Additional Labs: Accuchecks 04/14/19 04/14/19 04/13/19 11:19 05:38 20:40 POC Glucose 270 H 163 H 143 H 04/13/19 17:30 POC Glucose 185 H Phys Exam - Physical Examination Constitutional: NAD HEENT: PERRLA, moist MMs, sclera anicteric Neck: no JVD, supple Respiratory: no wheezing, no rales, no rhonchi Cardiovascular: RRR, no significant murmur, no rub Gastrointestinal: soft, non-tender, no distention, positive bowel sounds Musculoskeletal: no edema, pulses present Neurological: non-focal, normal sensation Lymphatic: no nodes Psychiatric: normal affect Skin: no rash, normal turgor Dx/Plan (1) YOSI (acute kidney injury) Code(s): N17.9 - ACUTE KIDNEY FAILURE, UNSPECIFIED Status: Acute (2) Cellulitis Code(s): L03.90 - CELLULITIS, UNSPECIFIED Status: Acute Qualifiers: Site of cellulitis of trunk: abdominal wall (3) Anemia, normocytic normochromic Code(s): D64.9 - ANEMIA, UNSPECIFIED Status: Chronic (4) BPH (benign prostatic hyperplasia) Code(s): N40.0 - BENIGN PROSTATIC HYPERPLASIA WITHOUT LOWER URINRY TRACT SYMP Status: Chronic (5) Chronic anticoagulation Code(s): Z79.01 - LONGTERM (CURRENT) USE OF ANTICOAGULANTS Status: Chronic (6) Chronic pain disorder Code(s): G89.4 - CHRONIC PAIN SYNDROME Status: Chronic (7) Chronic stage c diastolic heart failure Code(s): I50.32 - CHRONIC DIASTOLIC (CONGESTIVE) HEART FAILURE Status: Chronic (8) Diabetes type 2, uncontrolled Code(s): E11.65 - TYPE 2 DIABETES MELLITUS WITH HYPERGLYCEMIA Status: Chronic (9) Dyslipidemia Code(s): E78.5 - HYPERLIPIDEMIA, UNSPECIFIED Status: Chronic (10) GERD (gastroesophageal reflux disease) Code(s): K21.9 - GASTRO-ESOPHAGEAL REFLUX DISEASE WITHOUT ESOPHAGITIS Status: Chronic (11) Pacemaker Code(s): Z95.0 - PRESENCE OF CARDIAC PACEMAKER Status: Chronic - Plan cont current plan of care, continue antibiotics * continue vancomycin * will need MRI vs myelogram as per neurosurgeon * medication reviewed as below * symptomatic treatment. Review of Systems - Review of Systems ENT: negative: Ear Pain, Ear Discharge, Nose Pain, Nose Discharge, Nose Congestion, Mouth Pain, Mouth Swelling, Throat Pain, Throat Swelling, Other Respiratory: negative: Cough, Dry, Shortness of Breath, Hemoptysis, SOB with Excertion, Pleuritic Pain, Sputum, Wheezing Cardiovascular: negative: chest pain, palpitations, orthopnea, paroxysmal nocturnal dyspnea, edema, light headedness, other Gastrointestinal: negative: Nausea, Vomiting, Abdominal Pain, Diarrhea, Constipation, Melena, Hematochezia, Other Genitourinary: negative: Dysuria, Frequency, Incontinence, Hematuria, Retention , Other Musculoskeletal: negative: Neck Pain, Shoulder Pain, Arm Pain, Back Pain, Hand Pain, Leg Pain, Foot Pain, Other Skin: negative: Rash, Lesions, Romulo, Bruising, Other - Medications/Allergies Allergies/Adverse Reactions: Allergies Allergy/AdvReac Type Severity Reaction Status Date / Time No Known Allergies Allergy Unverified 03/24/19 07:58 Medications: Current Medications Acetaminophen (Tylenol) 650 mg PO Q4H PRN PRN Reason: Headache/Fever/Mild Pain (1-3) Last Admin: 04/12/19 20:05 Dose: 650 mg Hydrocodone Bitart/Acetaminophen ([place] 5/325) 1 tab PO Q4H PRN PRN Reason: Moderate Pain (4-6) Last Admin: 04/13/19 11:43 Dose: 1 tab Bisacodyl (Dulcolax) 10 mg [place] DAILYPRN PRN PRN Reason: Constipation Calcium Carbonate (Tums) 1,000 mg PO Q4H PRN PRN Reason: Heartburn or Indigestion Cyclobenzaprine HCl (Flexeril) 10 mg PO TID [facility] Last Admin: 04/14/19 08:23 Dose: 10 mg Dextrose/Water (Dextrose 50%) 25 gm SLOW IVP PRN PRN PRN Reason: Hypoglycemia Enoxaparin Sodium (Lovenox) 40 mg SC 0900 [facility] Last Admin: 04/14/19 08:31 Dose: 40 mg Famotidine (Pepcid) 20 mg PO Q24HR [facility] Last Admin: 04/14/19 08:31 Dose: 20 mg Glipizide (Glucotrol) 10 mg PO BID-AC [facility] Last Admin: 04/14/19 08:23 Dose: 10 mg Glucagon (Glucagon) 1 mg IM PRN PRN PRN Reason: Hypoglycemia Guaifenesin (Robitussin Sf) 200 mg PO Q4H PRN PRN Reason: Cough Guaifenesin/Dextromethorphan (Robitussin Dm) 15 ml PO Q4H PRN PRN Reason: Cough Hydralazine HCl (Apresoline) 10 mg SLOW IVP Q4H PRN PRN Reason: SBP > 180 and HR < 70 Dextrose/Water (D5w) 1,000 mls @ 0 mls/hr IV .Q0M PRN PRN Reason: Hypoglycemia Sodium Chloride (Normal Saline 0.9%) 1,000 mls @ 75 mls/hr IV .[id number] [facility] Last Admin: 04/14/19 04:57 Dose: Not Given Vancomycin HCl 1 gm/ Device 200 mls @ 200 mls/hr IVPB 1000,2200 [facility] Last Admin: 04/14/19 09:50 Dose: 200 mls Insulin Human Lispro (Humalog) 0 units SC .MODERATE SLIDING SC PRN PRN Reason: Moderate Correctional Scale Last Admin: 04/13/19 18:05 Dose: 2 unit Insulin Human Lispro (Humalog) 0 units SC .BEDTIME SLIDING SC PRN PRN Reason: Bedtime Correctional Scale Last Admin: 04/12/19 21:35 Dose: 4 unit Loperamide HCl (Imodium) 2 mg PO PRN PRN PRN Reason: Diarrhea/Loose Stools Loratadine (Claritin) 10 mg PO DAILYPRN PRN PRN Reason: Sinus Symptoms Metoprolol Tartrate (Lopressor) 12.5 mg PO BID [facility] Last Admin: 04/14/19 08:25 Dose: 12.5 mg Miscellaneous Medication (Pharmacy To Dose) 1 each IVPB .VANCOMYCIN PRN PRN Reason: LABS Nystatin (Mycostatin Powder) 0 gm TOP PRN PRN PRN Reason: . Ondansetron HCl (Zofran Odt) 4 mg PO Q6H PRN PRN Reason: Nausea/Vomiting Ondansetron HCl (Zofran) 4 mg IVP Q6H PRN PRN Reason: Nausea/Vomiting Oxycodone HCl (Oxycodone Ir) 10 mg PO BID [facility] Last Admin: 04/14/19 08:23 Dose: 10 mg Pregabalin (Lyrica) 300 mg PO BID [facility] Last Admin: 04/14/19 08:24 Dose: 300 mg Rosuvastatin Calcium (Crestor) 10 mg PO [facility] Last Admin: 04/14/19 08:24 Dose: 10 mg Rosuvastatin Calcium (Crestor) [address] [facility] Last Admin: 04/13/19 21:23 Dose: 10 mg Senna/Docusate Sodium (Senokot S) 2 tab PO BID PRN PRN Reason: Constipation Sodium Chloride ([place] Nasal [place] 0.65%) 0 ml EA NARE QIDPRN PRN PRN Reason: Nasal Congestion Tamsulosin HCl (Flomax) 0.4 mg PO [facility] Last Admin: 04/14/19 08:25 Dose: 0.4 mg Throat Lozenges (Cepastat Lozenges) 1 ollie PO Q2H PRN PRN Reason: Sore Throat Zolpidem Tartrate (Ambien) 5 mg PO HSPRN PRN PRN Reason: Insomnia
--- NOTE | 2019-04-14 15:01 | RAD ---
Lumbar spine 3 views Thoracic spine 3 views HISTORY: Back pain. Myelogram. FINDINGS: There are 12 thoracic type vertebrae and 5 lumbar type vertebrae. Pedicles are intact. Mild S shaped rotatory scoliotic curvature on the frontal view. Prominent osteophytosis throughout the vertebral bodies and facets. Multilevel disc space narrowing, endplate irregularity, and prominent os teophytosis. Minimal degenerative retrolisthesis at the L2-3 and L3-4 levels. Dorsal column stimulator device within the central spinal canal ascends to the mid thoracic spine. This exam was originally scheduled as a myelogram. The myelogram was performed under CT guidance and reported separately. Transcribed Date/Time: 04/14/2019 4:51 PM
--- NOTE | 2019-04-14 15:24 | PRG ---
DATE OF SERVICE: 04/14/2019 SUBJECTIVE: Mr. Feldman denies headaches. No shortness of breath or abdominal pain. No diarrhea. OBJECTIVE: VITAL SIGNS: Temperature has been normal. LUNGS: Clear. HEART: S1 and S2. Regular rate. ABDOMEN: Still with inflammatory process in the right sided pain pump. LABORATORY DATA: White cell count 8.2, has not been repeated. The cultures showed strep pyogenes from the abdominal drainage. Dr. Castro has evaluated the patient and there were some difficulties associated with removal of the device; 1. The risk of epidural bleeding. 2. The risk of compression due to the presence of a granuloma at the tip of the catheter. He will need withdrawal of anticoagulation and the second aspect will need to be assessed with MRI if the pacemaker is off the type that allows performance of MRI, if not then, more complex procedure would be required. So this is somewhat from quite difficult issues to solve before the device can be removed. ASSESSMENT AND DISCUSSION: Coronary artery disease, ischemic cardiomyopathy, sick sinus syndrome, pacemaker, chronic low back pain with morphine pump, inflammatory changes, and sinus tract at the morphine pump with likely chronic infection, group A strep has been retrieved, but other organisms could be present in view of the exposure to the ambient air. The patient to continue on vancomycin for now in view of the culture results until final results, but other organisms may be present in the deep pocket of the pump. Job ID: [id number] MTDD
[2019-04-14 16:22] LABS: CSF Source CSF; Clarity Hazy (Clear); RBC Count - Manual 833 /cumm (None Seen); Tube # 1; WBC/NonHematics Count - Manual 3 /cumm (0-5)
[2019-04-14] MEDS: HumaLOG 300 UNITS/3 ML VIAL SC PRN (17:00)
--- NOTE | 2019-04-14 17:02 | CT ---
Thoracolumbar myelogram CT-guided CT thoracic spine with contrast CT lumbar spine with contrast HISTORY: Infected pain pump. Back pain. FINDINGS: After explaining the procedure and answering all questions, limited CT imaging of the lumba r spine was performed with patient prone. Sterile technique, buffered local anesthesia, CT guidance, and a right posterolateral L3-4 approach were used to carefully advance the tip of a 22-gau ge spinal needle into the thecal sac. Approximately 7 mL of clear CSF was collected and submitted to laboratory for analysis. Approximately 12 mL of Isovue-200 M was carefully instilled into the thecal sac, with position confir med with CT. Needle was removed. Patient was repositioned to distribute contrast throughout the thecal sac of the thoracolumbar spine. Patient tolerated the procedure well and was eventually return ed in unchanged condition. Radiopaque catheter associated with a pain pump enters the posterior aspect of the central spinal can al at the L1-2 level and ascends along the left and posterior aspect of the thecal sac, adjacent to the posterior and left sides of the spinal cord. Superior tip is at the level of the T6-7 interspace. No fluid collections are apparent adjacent to the catheter. No mass producing defects within the thecal sac related to the catheter. Chronic compression of the T3 vertebral body is present with approximately 30% retropulsion. Gentle e ffacement of the ventral aspect of the thecal sac and spinal cord. Osteophytosis and multilevel mild disc bulges throughout the thoracic spine. L1-2: Mild posterior disc bulge. Circumferential degenerative changes with mild to moderate stenosis of the central canal. Severe right and moderate left foraminal stenoses. L2-3: Disc space narrowing with minimal degenerative retrolisthesis. Posterior disc bulge and circumf erential degenerative changes. Right laminectomy defect. Severe bilateral foraminal stenoses. L3-4: Complete loss of disc space. Approximately 5 mm retrolisthesis. Circumferential severe degenera tive changes with very severe stenosis of the central canal and each neural foramen. L4-5: Disc space narrowing and gas disc phenomenon. Disc bulge and prominent osteophytosis. Moderate stenosis of the central canal. Moderate right and very severe left foraminal stenoses. L5-S1: Grade 1 degenerative spondylolisthesis. Disc space narrowing. Thecal sac is patent at this lev el. Very severe bilateral foraminal stenoses. Images including the chest show cavitary lesion within the posterior aspect of the right lung apex. S carring throughout the partially visualized lungs. Reactive appearing lymph nodes throughout the mediastinum. Calcified granulomata of the spleen. Prominent calcification throughout the arterial str uctures. IMPRESSION: 1. Intrathecal portion of spinal pain pump as detailed above without evidence of complication.. 2. Chronic compression of the T3 vertebral body appears stable. 3. Severe multilevel degenerative changes with multilevel severe bilateral foraminal stenoses of the lumbar spine. Central canal stenosis is most severe at the L3-4 level. 4. Area of infiltrate and cavitary process at the posterior aspect of the right lung apex, partially visualized. If patient's pulmonary history is not clear, dedicated CT chest may be appropriate for further evaluation and better characterization. 5. Atherosclerosis. Transcribed Date/Time: 04/14/2019 6:05 PM
[2019-04-15] MEDS: HumaLOG 300 UNITS/3 ML VIAL SC PRN ×3 (05:42→20:53)
--- NOTE | 2019-04-15 07:18 | PRG ---
DATE OF SERVICE: 04/15/2019 I saw Mr. Feldman in his hospital room this morning. A myelogram was done yesterday and I have the results to review. Vital signs look stable. I do not find any new neurological deficits. Myelogram does not show a catheter tip granuloma and there was more than ample room to remove the drain without dragging it forcibly across the back of the spinal cord. This is good news. My exam seemed to be completed successfully without epidural hematoma. After the results of the myelogram, I think it is reasonable to consider removing this device in 2 parts. The 1st infected part which is the pump and the battery apparatus as well as the most proximal portion of the infusion catheter, could be removed as early as tomorrow. We washed out the pocket and closed it. On Wednesday, we can come back and make a small incision in the back to remove the catheter itself from the spine and all remaining foreign bodies connected to that infected area. This is the preference of the medical service and we will make arrangements for that to happen. The reason for the delay in removing the catheters and it is quite a bit larger than the myelogram needle, we will leave a hole in the dura that will leak to some extent. In the epidural space, we do not want filled with bleeding from exposure to one of the new anticoagulants. Job ID: [id number] MTDD
[2019-04-15] MEDS: Rosuvastatin 10 MG TAB PO SCH ×2 (07:42→20:49)
[2019-04-15] MEDS: Enoxaparin Sodium 40 MG/0.4 ML SYRINGE SC SCH (07:42)
[2019-04-15] MEDS: oxyCODONE 5 MG TAB PO SCH ×2 (07:42→20:51)
[2019-04-15] MEDS: glipiZIDE 10 MG TAB PO SCH ×2 (07:42→16:35)
[2019-04-15] MEDS: Cyclobenzaprine 10 MG TAB PO SCH ×3 (07:43→20:49)
[2019-04-15] MEDS: Metoprolol Tartrate 25 MG TAB PO SCH ×2 (07:44→20:50)
[2019-04-15] MEDS: Tamsulosin HCl 0.4 MG CAP PO SCH (07:44)
[2019-04-15] MEDS: Pregabalin 75 MG CAP PO SCH ×2 (07:44→20:50)
[2019-04-15] MEDS: Famotidine 20 MG TAB PO SCH (07:45)
[2019-04-15] MEDS: Sodium Chloride 0.9% 1,000 ML IV SCH ×2 (07:48→20:49)
[2019-04-15 09:48] LABS: Vancomycin, Trough 22.5 ug/mL
[2019-04-15] MEDS: Vancomycin HCl 1 GM in Premix Bag 1 BAG IVPB SCH (10:25)
--- NOTE | 2019-04-15 11:19 | PDOC.PN ---
- Subjective Encounter Start Date: 04/15/19 Encounter Start Time: 09:15 Patient seen and examined. No new complaints. No overnight events - Objective Resuscitation Status - Order Detail: 04/11/19 07:53 Resuscitation Status Routine Resuscitation Status: FULL: Full Resuscitation MAR Reviewed: Yes Vital Signs & Weight: Vital Signs (12 hours) Temp Pulse Resp BP BP Pulse Ox 04/15/19 08:00 95 04/15/19 07:22 97.4 F L 69 19 135/75 95 04/15/19 05:50 97.4 F L 76 20 138/80 95 04/14/19 23:55 97.3 F L 80 16 136/72 97 Weight Weight 185 lb I&O: 04/14/19 04/15/19 04/16/19 06:59 06:59 06:59 Intake Total 3040 2840 240 Output Total 2200 2300 Balance 840 540 240 Result Diagrams: 04/12/19 06:11 04/12/19 06:11 Additional Labs: Accuchecks 04/15/19 04/14/19 04/14/19 05:44 20:15 16:50 POC Glucose 189 H 154 H 276 H 04/14/19 11:19 POC Glucose 270 H Phys Exam - Physical Examination Constitutional: NAD HEENT: PERRLA, moist MMs, sclera anicteric Neck: no JVD, supple Respiratory: no wheezing, no rales, no rhonchi Cardiovascular: RRR, no significant murmur, no rub Gastrointestinal: soft, non-tender, no distention, positive bowel sounds cellulitis over morphin pump Musculoskeletal: no edema, pulses present Neurological: non-focal, normal sensation Lymphatic: no nodes Psychiatric: normal affect, A&O x 3 Skin: no rash, normal turgor Dx/Plan (1) YOSI (acute kidney injury) Code(s): N17.9 - ACUTE KIDNEY FAILURE, UNSPECIFIED Status: Acute (2) Cellulitis Code(s): L03.90 - CELLULITIS, UNSPECIFIED Status: Acute Qualifiers: Site of cellulitis of trunk: abdominal wall (3) Anemia, normocytic normochromic Code(s): D64.9 - ANEMIA, UNSPECIFIED Status: Chronic (4) BPH (benign prostatic hyperplasia) Code(s): N40.0 - BENIGN PROSTATIC HYPERPLASIA WITHOUT LOWER URINRY TRACT SYMP Status: Chronic (5) Chronic anticoagulation Code(s): Z79.01 - [employer] (CURRENT) USE OF ANTICOAGULANTS Status: Chronic (6) Chronic pain disorder Code(s): G89.4 - CHRONIC PAIN SYNDROME Status: Chronic (7) Chronic stage c diastolic heart failure Code(s): I50.32 - CHRONIC DIASTOLIC (CONGESTIVE) HEART FAILURE Status: Chronic (8) Diabetes type 2, uncontrolled Code(s): E11.65 - TYPE 2 DIABETES MELLITUS WITH HYPERGLYCEMIA Status: Chronic (9) Dyslipidemia Code(s): E78.5 - HYPERLIPIDEMIA, UNSPECIFIED Status: Chronic (10) GERD (gastroesophageal reflux disease) Code(s): K21.9 - GASTRO-ESOPHAGEAL REFLUX DISEASE WITHOUT ESOPHAGITIS Status: Chronic (11) Pacemaker Code(s): Z95.0 - PRESENCE OF CARDIAC PACEMAKER Status: Chronic - Plan cont current plan of care, continue antibiotics * continue vancomycin * morphin pump removal may be on wednesday * medication reviewed as below * symptomatic treatment. Review of Systems - Review of Systems ENT: negative: Ear Pain, Ear Discharge, Nose Pain, Nose Discharge, Nose Congestion, Mouth Pain, Mouth Swelling, Throat Pain, Throat Swelling, Other Respiratory: negative: Cough, Dry, Shortness of Breath, Hemoptysis, SOB with Excertion, Pleuritic Pain, Sputum, Wheezing Cardiovascular: negative: chest pain, palpitations, orthopnea, paroxysmal nocturnal dyspnea, edema, light headedness, other Gastrointestinal: negative: Nausea, Vomiting, Abdominal Pain, Diarrhea, Constipation, Melena, Hematochezia, Other Genitourinary: negative: Dysuria, Frequency, Incontinence, Hematuria, Retention , Other Musculoskeletal: negative: Neck Pain, Shoulder Pain, Arm Pain, Back Pain, Hand Pain, Leg Pain, Foot Pain, Other Skin: negative: Rash, Lesions, Romulo, Bruising, Other - Medications/Allergies Allergies/Adverse Reactions: Allergies Allergy/AdvReac Type Severity Reaction Status Date / Time No Known Allergies Allergy Unverified 03/24/19 07:58 Medications: Current Medications Acetaminophen (Tylenol) 650 mg PO Q4H PRN PRN Reason: Headache/Fever/Mild Pain (1-3) Last Admin: 04/12/19 20:05 Dose: 650 mg Hydrocodone Bitart/Acetaminophen ([place] 5/325) 1 tab PO Q4H PRN PRN Reason: Moderate Pain (4-6) Last Admin: 04/13/19 11:43 Dose: 1 tab Bisacodyl (Dulcolax) 10 mg [place] DAILYPRN PRN PRN Reason: Constipation Calcium Carbonate (Tums) 1,000 mg PO Q4H PRN PRN Reason: Heartburn or Indigestion Cyclobenzaprine HCl (Flexeril) 10 mg PO TID [facility] Last Admin: 04/15/19 07:43 Dose: 10 mg Dextrose/Water (Dextrose 50%) 25 gm SLOW IVP PRN PRN PRN Reason: Hypoglycemia Enoxaparin Sodium (Lovenox) 40 mg SC 0900 [facility] Last Admin: 04/15/19 07:42 Dose: 40 mg Famotidine (Pepcid) 20 mg PO Q24HR [facility] Last Admin: 04/15/19 07:45 Dose: 20 mg Glipizide (Glucotrol) 10 mg PO BID-AC [facility] Last Admin: 04/15/19 07:42 Dose: 10 mg Glucagon (Glucagon) 1 mg IM PRN PRN PRN Reason: Hypoglycemia Guaifenesin (Robitussin Sf) 200 mg PO Q4H PRN PRN Reason: Cough Guaifenesin/Dextromethorphan (Robitussin Dm) 15 ml PO Q4H PRN PRN Reason: Cough Hydralazine HCl (Apresoline) 10 mg SLOW IVP Q4H PRN PRN Reason: SBP > 180 and HR < 70 Dextrose/Water (D5w) 1,000 mls @ 0 mls/hr IV .Q0M PRN PRN Reason: Hypoglycemia Sodium Chloride (Normal Saline 0.9%) 1,000 mls @ 75 mls/hr IV .[id number] [facility] Last Admin: 04/15/19 07:48 Dose: 1,000 mls Vancomycin HCl 750 mg/ Sodium (Chloride) 250 mls @ 250 mls/hr IVPB 1000,2200 [facility] Insulin Human Lispro (Humalog) 0 units SC .MODERATE SLIDING SC PRN PRN Reason: Moderate Correctional Scale Last Admin: 04/15/19 05:42 Dose: 2 unit Insulin Human Lispro (Humalog) 0 units SC .BEDTIME SLIDING SC PRN PRN Reason: Bedtime Correctional Scale Last Admin: 04/12/19 21:35 Dose: 4 unit Loperamide HCl (Imodium) 2 mg PO PRN PRN PRN Reason: Diarrhea/Loose Stools Loratadine (Claritin) 10 mg PO DAILYPRN PRN PRN Reason: Sinus Symptoms Metoprolol Tartrate (Lopressor) 12.5 mg PO BID [facility] Last Admin: 04/15/19 07:44 Dose: 12.5 mg Miscellaneous Medication (Pharmacy To Dose) 1 each IVPB .VANCOMYCIN PRN PRN Reason: LABS Nystatin (Mycostatin Powder) 0 gm TOP PRN PRN PRN Reason: . Ondansetron HCl (Zofran Odt) 4 mg PO Q6H PRN PRN Reason: Nausea/Vomiting Ondansetron HCl (Zofran) 4 mg IVP Q6H PRN PRN Reason: Nausea/Vomiting Oxycodone HCl (Oxycodone Ir) 10 mg PO BID [facility] Last Admin: 04/15/19 07:42 Dose: 10 mg Pregabalin (Lyrica) 300 mg PO BID [facility] Last Admin: 04/15/19 07:44 Dose: 300 mg Rosuvastatin Calcium (Crestor) [address] [facility] Last Admin: 04/15/19 07:42 Dose: 10 mg Rosuvastatin Calcium (Crestor) 10 mg PO [facility] Last Admin: 04/14/19 20:14 Dose: 10 mg Senna/Docusate Sodium (Senokot S) 2 tab PO BID PRN PRN Reason: Constipation Sodium Chloride ([place] Nasal [place] 0.65%) 0 ml EA NARE QIDPRN PRN PRN Reason: Nasal Congestion Tamsulosin HCl (Flomax) 0.[address] [facility] Last Admin: 04/15/19 07:44 Dose: 0.4 mg Throat Lozenges (Cepastat Lozenges) 1 ollie PO Q2H PRN PRN Reason: Sore Throat Zolpidem Tartrate (Ambien) 5 mg PO HSPRN PRN PRN Reason: Insomnia
[2019-04-15] MEDS: Vancomycin HCl 750 MG in Sodium Chloride 0.9% 250 ML 250 ML IVPB SCH (21:21)
[2019-04-16] MEDS: HumaLOG 300 UNITS/3 ML VIAL SC PRN ×3 (05:52→21:05)
[2019-04-16] MEDS: glipiZIDE 10 MG TAB PO SCH ×2 (08:45→16:33)
[2019-04-16] MEDS: Rosuvastatin 10 MG TAB PO SCH ×2 (08:45→21:04)
[2019-04-16] MEDS: Pregabalin 75 MG CAP PO SCH ×2 (08:45→21:05)
[2019-04-16] MEDS: Metoprolol Tartrate 25 MG TAB PO SCH ×2 (08:45→21:05)
[2019-04-16] MEDS: Famotidine 20 MG TAB PO SCH (08:46)
[2019-04-16] MEDS: Cyclobenzaprine 10 MG TAB PO SCH ×3 (08:46→21:04)
[2019-04-16] MEDS: Enoxaparin Sodium 40 MG/0.4 ML SYRINGE SC SCH (08:47)
[2019-04-16] MEDS: oxyCODONE 5 MG TAB PO SCH ×2 (08:47→21:04)
[2019-04-16] MEDS: Tamsulosin HCl 0.4 MG CAP PO SCH (08:47)
--- NOTE | 2019-04-16 09:46 | PRG ---
DATE OF SERVICE: 04/16/2019 I saw Mr. Feldman in his hospital room this morning. We will plan on removing the entire system of his intrathecal morphine pump on Wednesday. We will attempt this in the lateral decubitus position to access the abdomen, the flank, and the back simultaneously, but if need be, we will do a supine procedure first tie off the tubing and then flip into a posterior operation if necessary. We will wash it out and take cultures at the time. Gaston will need medical help with withdrawal of intrathecal morphine. Withdrawal symptoms could be avoided with the addition of IV oral medications. If necessary, the Interventional Pain Management Team might be able to anticipate and prevent withdrawal symptoms. Informed Consent: I discussed indications, risks, benefits, and alternatives as well as expected outcomes from morphine pain pump removal. The risks we discussed included, but were not limited to, worsening infection, bleeding, epidural hematoma, paralysis, CSF leak, wheelchair dependence, cardiopulmonary complications of anesthesia and . He understands the risks and wants to proceed. Arrangements will be made for Wednesday. Job ID: [id number]
--- NOTE | 2019-04-16 09:48 | PRG ---
DATE OF SERVICE: 04/16/2019 Mr. Feldman is here for his abdominal cellulitis, infected morphine pain pump. We are planning surgery on Wednesday to remove the pain pump and the spinal catheter. We will do both procedures on Wednesday once he has been off his blood thinner for 7 days, and it is safe to remove the catheter at that time. Consent has been arranged. Antibiotics have been arranged and he is scheduled for Wednesday. The hospitalist agrees that he is cleared for surgery as well as Infectious Disease. We will plan surgery Wednesday. Job ID: [id number]
[2019-04-16] MEDS: Vancomycin HCl 750 MG in Sodium Chloride 0.9% 250 ML 250 ML IVPB SCH ×2 (10:10→21:05)
[2019-04-16] MEDS: Sodium Chloride 0.9% 1,000 ML IV SCH (11:41)
--- NOTE | 2019-04-16 12:02 | PDOC.PN ---
- Subjective Encounter Start Date: 04/16/19 Encounter Start Time: 09:15 Patient seen and examined. No new complaints. No overnight events - Objective Resuscitation Status - Order Detail: 04/11/19 07:53 Resuscitation Status Routine Resuscitation Status: FULL: Full Resuscitation MAR Reviewed: Yes Vital Signs & Weight: Vital Signs (12 hours) Temp Pulse Resp BP BP BP Pulse Ox 04/16/19 08:00 95 04/16/19 07:47 97.4 F L 75 18 125/76 95 04/16/19 04:16 97.7 F 93 20 149/78 H 96 04/16/19 00:14 97.6 F 88 18 171/81 H 95 Weight Weight 185 lb I&O: 04/15/19 04/16/19 04/17/19 06:59 06:59 06:59 Intake Total 2840 2850 360 Output Total 2300 3050 Balance 540 -200 360 Result Diagrams: 04/12/19 06:11 04/12/19 06:11 Additional Labs: Accuchecks 04/16/19 04/16/19 04/15/19 11:45 05:51 19:39 POC Glucose 194 H 263 H 311 H 04/15/19 16:10 POC Glucose 218 H Phys Exam - Physical Examination Constitutional: NAD HEENT: PERRLA, moist MMs, sclera anicteric Neck: no JVD, supple Respiratory: no wheezing, no rales, no rhonchi Cardiovascular: RRR, no significant murmur, no rub Gastrointestinal: soft, non-tender, no distention, positive bowel sounds cellulitis wound over morphin pump site Musculoskeletal: no edema, pulses present Neurological: non-focal, normal sensation Lymphatic: no nodes Psychiatric: normal affect, A&O x 3 Skin: no rash, normal turgor Dx/Plan (1) YOSI (acute kidney injury) Code(s): N17.9 - ACUTE KIDNEY FAILURE, UNSPECIFIED Status: Acute (2) Cellulitis Code(s): L03.90 - CELLULITIS, UNSPECIFIED Status: Acute Qualifiers: Site of cellulitis of trunk: abdominal wall (3) Anemia, normocytic normochromic Code(s): D64.9 - ANEMIA, UNSPECIFIED Status: Chronic (4) BPH (benign prostatic hyperplasia) Code(s): N40.0 - BENIGN PROSTATIC HYPERPLASIA WITHOUT LOWER URINRY TRACT SYMP Status: Chronic (5) Chronic anticoagulation Code(s): Z79.01 - HALFWAY (CURRENT) USE OF ANTICOAGULANTS Status: Chronic (6) Chronic pain disorder Code(s): G89.4 - CHRONIC PAIN SYNDROME Status: Chronic (7) Chronic stage c diastolic heart failure Code(s): I50.32 - CHRONIC DIASTOLIC (CONGESTIVE) HEART FAILURE Status: Chronic (8) Diabetes type 2, uncontrolled Code(s): E11.65 - TYPE 2 DIABETES MELLITUS WITH HYPERGLYCEMIA Status: Chronic (9) Dyslipidemia Code(s): E78.5 - HYPERLIPIDEMIA, UNSPECIFIED Status: Chronic (10) GERD (gastroesophageal reflux disease) Code(s): K21.9 - GASTRO-ESOPHAGEAL REFLUX DISEASE WITHOUT ESOPHAGITIS Status: Chronic (11) Pacemaker Code(s): Z95.0 - PRESENCE OF CARDIAC PACEMAKER Status: Chronic - Plan cont current plan of care, continue antibiotics * plan for surgery, morphin pump and lead removal on wednesday * continue vancomycin * duration and antibiotic will defer to dr tracey * medication reviewed as below * symptomatic treatment * wound care. Review of Systems - Review of Systems ENT: negative: Ear Pain, Ear Discharge, Nose Pain, Nose Discharge, Nose Congestion, Mouth Pain, Mouth Swelling, Throat Pain, Throat Swelling, Other Respiratory: negative: Cough, Dry, Shortness of Breath, Hemoptysis, SOB with Excertion, Pleuritic Pain, Sputum, Wheezing Cardiovascular: negative: chest pain, palpitations, orthopnea, paroxysmal nocturnal dyspnea, edema, light headedness, other Gastrointestinal: negative: Nausea, Vomiting, Abdominal Pain, Diarrhea, Constipation, Melena, Hematochezia, Other Genitourinary: negative: Dysuria, Frequency, Incontinence, Hematuria, Retention , Other Musculoskeletal: negative: Neck Pain, Shoulder Pain, Arm Pain, Back Pain, Hand Pain, Leg Pain, Foot Pain, Other - Medications/Allergies Allergies/Adverse Reactions: Allergies Allergy/AdvReac Type Severity Reaction Status Date / Time No Known Allergies Allergy Unverified 03/24/19 07:58 Medications: Current Medications Acetaminophen (Tylenol) 650 mg PO Q4H PRN PRN Reason: Headache/Fever/Mild Pain (1-3) Last Admin: 04/12/19 20:05 Dose: 650 mg Hydrocodone Bitart/Acetaminophen ([place] 5/325) 1 tab PO Q4H PRN PRN Reason: Moderate Pain (4-6) Last Admin: 04/13/19 11:43 Dose: 1 tab Bisacodyl (Dulcolax) 10 mg [place] DAILYPRN PRN PRN Reason: Constipation Calcium Carbonate (Tums) 1,000 mg PO Q4H PRN PRN Reason: Heartburn or Indigestion Cyclobenzaprine HCl (Flexeril) 10 mg PO TID [facility] Last Admin: 04/16/19 08:46 Dose: 10 mg Dextrose/Water (Dextrose 50%) 25 gm SLOW IVP PRN PRN PRN Reason: Hypoglycemia Enoxaparin Sodium (Lovenox) 40 mg SC 0900 [facility] Last Admin: 04/16/19 08:47 Dose: 40 mg Famotidine (Pepcid) 20 mg PO Q24HR [facility] Last Admin: 04/16/19 08:46 Dose: 20 mg Glipizide (Glucotrol) 10 mg PO BID-AC [facility] Last Admin: 04/16/19 08:45 Dose: 10 mg Glucagon (Glucagon) 1 mg IM PRN PRN PRN Reason: Hypoglycemia Guaifenesin (Robitussin Sf) 200 mg PO Q4H PRN PRN Reason: Cough Guaifenesin/Dextromethorphan (Robitussin Dm) 15 ml PO Q4H PRN PRN Reason: Cough Hydralazine HCl (Apresoline) 10 mg SLOW IVP Q4H PRN PRN Reason: SBP > 180 and HR < 70 Dextrose/Water (D5w) 1,000 mls @ 0 mls/hr IV .Q0M PRN PRN Reason: Hypoglycemia Sodium Chloride (Normal Saline 0.9%) 1,000 mls @ 75 mls/hr IV .[id number] [facility] Last Admin: 04/16/19 11:41 Dose: Not Given Vancomycin HCl 750 mg/ Sodium (Chloride) 250 mls @ 250 mls/hr IVPB 1000,2200 [facility] Last Admin: 04/16/19 10:10 Dose: 250 mls Cefazolin Sodium/Dextrose 2 gm (/ Device) 50 mls @ 100 mls/hr IVPB ONCALL-OR [facility] Insulin Human Lispro (Humalog) 0 units SC .MODERATE SLIDING SC PRN PRN Reason: Moderate Correctional Scale Last Admin: 04/16/19 05:52 Dose: 6 unit Insulin Human Lispro (Humalog) 0 units SC .BEDTIME SLIDING SC PRN PRN Reason: Bedtime Correctional Scale Last Admin: 04/15/19 20:53 Dose: 4 unit Loperamide HCl (Imodium) 2 mg PO PRN PRN PRN Reason: Diarrhea/Loose Stools Loratadine (Claritin) 10 mg PO DAILYPRN PRN PRN Reason: Sinus Symptoms Metoprolol Tartrate (Lopressor) 12.5 mg PO BID [facility] Last Admin: 04/16/19 08:45 Dose: 12.5 mg Miscellaneous Medication (Pharmacy To Dose) 1 each IVPB .VANCOMYCIN PRN PRN Reason: LABS Nystatin (Mycostatin Powder) 0 gm TOP PRN PRN PRN Reason: . Ondansetron HCl (Zofran Odt) 4 mg PO Q6H PRN PRN Reason: Nausea/Vomiting Ondansetron HCl (Zofran) 4 mg IVP Q6H PRN PRN Reason: Nausea/Vomiting Oxycodone HCl (Oxycodone Ir) 10 mg PO BID [facility] Last Admin: 04/16/19 08:47 Dose: 10 mg Pregabalin (Lyrica) 300 mg PO BID [facility] Last Admin: 04/16/19 08:45 Dose: 300 mg [facility]uvastatin Cal[facility] ([facility]) [facility] Last Admin: 04/16/19 08:45 Dose: 10 mg Rosuvastatin Calcium (Crestor) 10 mg PO [facility] Last Admin: 04/15/19 20:49 Dose: 10 mg Senna/Docusate Sodium (Senokot S) 2 tab PO BID PRN PRN Reason: Constipation Sodium Chloride ([place] Nasal [place] 0.65%) 0 ml EA NARE QIDPRN PRN PRN Reason: Nasal Congestion Tamsulosin HCl (Flomax) [facility] Last Admin: 04/16/19 08:47 Dose: 0.4 mg Throat Lozenges (Cepastat Lozenges) 1 ollie PO Q2H PRN PRN Reason: Sore Throat Zolpidem Tartrate (Ambien) 5 mg PO HSPRN PRN PRN Reason: Insomnia
[2019-04-17] MEDS: Sodium Chloride 0.9% 1,000 ML IV SCH ×3 (06:02→22:45)
--- NOTE | 2019-04-17 06:46 | PRG ---
DATE OF SERVICE: Mr. Feldman is here for an infected pain pump, which is complicated due to the patient being on blood thinners. We are going to remove the pain pump surgically along with the catheter tomorrow morning. The patient has been stable overnight. There were no events recorded. Arrangements have been made for surgery tomorrow. Job ID: [id number]
[2019-04-17] MEDS: glipiZIDE 10 MG TAB PO SCH ×2 (07:50→17:13)
[2019-04-17 09:27] LABS: Vancomycin, Trough 20.9 ug/mL
[2019-04-17] MEDS: Vancomycin HCl 750 MG in Sodium Chloride 0.9% 250 ML 250 ML IVPB SCH (09:42)
[2019-04-17] MEDS: Famotidine 20 MG TAB PO SCH (09:43)
[2019-04-17] MEDS: Pregabalin 75 MG CAP PO SCH ×2 (09:43→22:30)
[2019-04-17] MEDS: oxyCODONE 5 MG TAB PO SCH ×2 (09:48→22:32)
[2019-04-17] MEDS: Cyclobenzaprine 10 MG TAB PO SCH ×3 (09:49→22:32)
[2019-04-17] MEDS: Metoprolol Tartrate 25 MG TAB PO SCH ×2 (09:50→22:31)
[2019-04-17] MEDS: Rosuvastatin 10 MG TAB PO SCH ×2 (09:50→22:32)
[2019-04-17] MEDS: Tamsulosin HCl 0.4 MG CAP PO SCH (09:51)
[2019-04-17] MEDS: Enoxaparin Sodium 40 MG/0.4 ML SYRINGE SC SCH (09:55)
[2019-04-17] MEDS: HumaLOG 300 UNITS/3 ML VIAL SC PRN ×2 (13:43→17:16)
--- NOTE | 2019-04-17 18:36 | PDOC.PN ---
- Subjective Encounter Start Date: 04/17/19 Encounter Start Time: 13:00 Subjective: no new complaints -: feels better - Objective Resuscitation Status - Order Detail: 04/11/19 07:53 Resuscitation Status Routine Resuscitation Status: FULL: Full Resuscitation MAR Reviewed: Yes Vital Signs & Weight: Vital Signs (12 hours) Temp Pulse Resp BP BP Pulse Ox 04/17/19 11:54 97.8 F 75 18 147/78 H 95 04/17/19 07:27 97.7 F 75 18 128/71 95 Weight Weight 185 lb I&O: 04/16/19 04/17/19 04/18/19 06:59 06:59 06:59 Intake Total 2850 3049 Output Total 3050 4125 Balance -200 -1076 Result Diagrams: 04/12/19 06:11 04/12/19 06:11 Additional Labs: Accuchecks 04/17/19 04/17/19 04/17/19 17:10 11:56 06:00 POC Glucose 155 H 236 H 160 H 04/16/19 19:48 POC Glucose 248 H Phys Exam - Physical Examination HEENT: PERRLA, moist MMs Neck: no JVD, supple Respiratory: no wheezing, no rales Cardiovascular: RRR, no significant murmur Gastrointestinal: soft, non-tender, positive bowel sounds has open wound near his pain pump on lat aspect Musculoskeletal: no edema, pulses present Neurological: non-focal, moves all 4 limbs Psychiatric: normal affect, A&O x 3 Dx/Plan (1) Cellulitis Code(s): L03.90 - CELLULITIS, UNSPECIFIED Status: Acute Qualifiers: Site of cellulitis of trunk: abdominal wall (2) DM type 2 (diabetes mellitus, type 2) Status: Chronic Qualifiers: Diabetes mellitus ocean transportation intermediary insulin use: without ocean transportation intermediary use Diabetes mellitus complication status: with other specified complication Qualified Code (s): E11.69 - Type 2 diabetes mellitus with other specified complication (3) Anemia, normocytic normochromic Code(s): D64.9 - ANEMIA, UNSPECIFIED Status: Chronic (4) BPH (benign prostatic hyperplasia) Code(s): N40.0 - BENIGN PROSTATIC HYPERPLASIA WITHOUT LOWER URINRY TRACT SYMP Status: Chronic Qualifiers: Lower urinary tract symptom presence: symptoms absent Qualified Code(s): N40.0 - Benign prostatic hyperplasia without lower urinary tract symptoms (5) Chronic pain disorder Code(s): G89.4 - CHRONIC PAIN SYNDROME Status: Chronic (6) Chronic stage c diastolic heart failure Code(s): I50.32 - CHRONIC DIASTOLIC (CONGESTIVE) HEART FAILURE Status: Chronic (7) Dyslipidemia Code(s): E78.5 - HYPERLIPIDEMIA, UNSPECIFIED Status: Chronic (8) GERD (gastroesophageal reflux disease) Code(s): K21.9 - GASTRO-ESOPHAGEAL REFLUX DISEASE WITHOUT ESOPHAGITIS Status: Chronic Qualifiers: Esophagitis presence: esophagitis presence not specified Qualified Code(s) : K21.9 - Gastro-esophageal reflux disease without esophagitis (9) Pacemaker Code(s): Z95.0 - PRESENCE OF CARDIAC PACEMAKER Status: Chronic - Plan for extraction of pain pump in am -: is on oxycodone, flexeril, lyrica high dose -: continue glipizide, lopressor, crestor -: hemostable -: pain mgmt/anesthesia consultation in am after extraction of morphine pump * . Review of Systems - Medications/Allergies Allergies/Adverse Reactions: Allergies Allergy/AdvReac Type Severity Reaction Status Date / Time No Known Allergies Allergy Unverified 03/24/19 07:58 Medications: Current Medications Acetaminophen (Tylenol) 650 mg PO Q4H PRN PRN Reason: Headache/Fever/Mild Pain (1-3) Last Admin: 04/12/19 20:05 Dose: 650 mg Hydrocodone Bitart/Acetaminophen ([place] 5/325) 1 tab PO Q4H PRN PRN Reason: Moderate Pain (4-6) Last Admin: 04/13/19 11:43 Dose: 1 tab Bisacodyl (Dulcolax) 10 mg [place] DAILYPRN PRN PRN Reason: Constipation Calcium Carbonate (Tums) 1,000 mg PO Q4H PRN PRN Reason: Heartburn or Indigestion Cyclobenzaprine HCl (Flexeril) 10 mg PO TID [facility] Last Admin: 04/17/19 17:13 Dose: 10 mg Dextrose/Water (Dextrose 50%) 25 gm SLOW IVP PRN PRN PRN Reason: Hypoglycemia Enoxaparin Sodium (Lovenox) 40 mg SC 0900 [facility] Last Admin: 04/17/19 09:55 Dose: 40 mg Famotidine (Pepcid) 20 mg PO Q24HR [facility] Last Admin: 04/17/19 09:43 Dose: 20 mg Glipizide (Glucotrol) 10 mg PO BID-AC [facility] Last Admin: 04/17/19 17:13 Dose: 10 mg Glucagon (Glucagon) 1 mg IM PRN PRN PRN Reason: Hypoglycemia Guaifenesin (Robitussin Sf) 200 mg PO Q4H PRN PRN Reason: Cough Guaifenesin/Dextromethorphan (Robitussin Dm) 15 ml PO Q4H PRN PRN Reason: Cough Hydralazine HCl (Apresoline) 10 mg SLOW IVP Q4H PRN PRN Reason: SBP > 180 and HR < 70 Dextrose/Water (D5w) 1,000 mls @ 0 mls/hr IV .Q0M PRN PRN Reason: Hypoglycemia Sodium Chloride (Normal Saline 0.9%) 1,000 mls @ 75 mls/hr IV .[id number] [facility] Last Admin: 04/17/19 17:15 Dose: Not Given Cefazolin Sodium/Dextrose 2 gm (/ Device) 50 mls @ 100 mls/hr IVPB ONCALL-OR [facility] Vancomycin HCl 1.25 gm/ Sodium (Chloride) 250 mls @ 166.667 mls/hr IVPB 2200 [facility] Insulin Human Lispro (Humalog) 0 units SC .MODERATE SLIDING SC PRN PRN Reason: Moderate Correctional Scale Last Admin: 04/17/19 17:16 Dose: 2 unit Insulin Human Lispro (Humalog) 0 units SC .BEDTIME SLIDING SC PRN PRN Reason: Bedtime Correctional Scale Last Admin: 04/16/19 21:05 Dose: 2 unit Loperamide HCl (Imodium) 2 mg PO PRN PRN PRN Reason: Diarrhea/Loose Stools Loratadine (Claritin) 10 mg PO DAILYPRN PRN PRN Reason: Sinus Symptoms Metoprolol Tartrate (Lopressor) 12.5 mg PO BID [facility] Last Admin: 04/17/19 09:50 Dose: 12.5 mg Miscellaneous Medication (Pharmacy To Dose) 1 each IVPB .VANCOMYCIN PRN PRN Reason: LABS Nystatin (Mycostatin Powder) 0 gm TOP PRN PRN PRN Reason: . Ondansetron HCl (Zofran Odt) 4 mg PO Q6H PRN PRN Reason: Nausea/Vomiting Ondansetron HCl (Zofran) 4 mg IVP Q6H PRN PRN Reason: Nausea/Vomiting Oxycodone HCl (Oxycodone Ir) 10 mg PO BID [facility] Last Admin: 04/17/19 09:48 Dose: 10 mg Pregabalin (Lyrica) 300 mg PO BID [facility] Last Admin: 04/17/19 09:43 Dose: 300 mg Rosuvastatin Calcium ([facility]or) [facility] Last Admin: 04/17/19 09:50 Dose: 10 mg Rosuvastatin Calcium (Crestor) 10 mg PO [facility] Last Admin: 04/16/19 21:04 Dose: 10 mg Senna/Docusate Sodium (Senokot S) 2 tab PO BID PRN PRN Reason: Constipation Sodium Chloride ([place] Nasal [place] 0.65%) 0 ml EA NARE QIDPRN PRN PRN Reason: Nasal Congestion Tamsulosin HCl (Flomax) 0.4 mg [facility] Last Admin: 04/17/19 09:51 Dose: 0.4 mg Throat Lozenges (Cepastat Lozenges) 1 ollie PO Q2H PRN PRN Reason: Sore Throat Zolpidem Tartrate (Ambien) 5 mg PO HSPRN PRN PRN Reason: Insomnia
[2019-04-17] MEDS: Vancomycin HCl 1.25 GM in Sodium Chloride 0.9% 250 ML 250 ML IVPB SCH (22:36)
[2019-04-18] MEDS: Sodium Chloride 0.9% 1,000 ML IV SCH ×2 (04:26→16:47)
[2019-04-18] MEDS: Metoprolol Tartrate 25 MG TAB PO SCH ×2 (05:34→21:14)
[2019-04-18] MEDS ORDERED: Thrombin 5000 UNITS/5 ML VIAL ONE (06:17)
[2019-04-18] MEDS ORDERED: Sodium Chloride 0.9% 10 ML ONE (06:17)
[2019-04-18] MEDS ORDERED: Bupivacaine HCl 0.5%/Epinephrine 1:200,000/PF 30 ml Vial ONE (06:17)
[2019-04-18] MEDS ORDERED: ceFAZolin Sodium (SDC) 2 GM/100 ML BAG ONE (06:19)
[2019-04-18] MEDS ORDERED: Ketamine 50 MG/ML (10ML VIAL) ONE (06:56)
[2019-04-18] MEDS ORDERED: Fentanyl 100 MCG/2 ML VIAL ONE (06:56)
[2019-04-18] MEDS ORDERED: Vancomycin HCl 500 MG in Sodium Chloride 0.9% 100 ML IVPB SCH (07:15)
[2019-04-18] MEDS ORDERED: CEFAZOLIN 2 GM in Premix Bag 1 BAG IVPB SCH (08:00)
[2019-04-18] MEDS ORDERED: Promethazine HCl 25 MG/ML VIAL IM PRN (09:23)
[2019-04-18] MEDS ORDERED: Ondansetron HCl/PF 4 MG/2 ML Vial IVP PRN (09:23)
[2019-04-18] MEDS ORDERED: PACU-Morphine 4MG/ML VIAL SLOW IVP PRN (09:23)
[2019-04-18] MEDS ORDERED: Promethazine HCl 25 MG/ML VIAL SLOW IVP PRN (09:23)
[2019-04-18] MEDS ORDERED: HYDROmorphone 2 MG/ML VIAL SLOW IVP PRN (09:23)
--- NOTE | 2019-04-18 10:59 | OP ---
DATE OF PROCEDURE: 04/18/2019 DIRECTOR PRODUCT: Kelly Hanley PA-C. PREOPERATIVE INDICATION: Treat infection, prevent neurological deterioration. PREOPERATIVE DIAGNOSIS: Infected intrathecal pain pump. POSTOPERATIVE DIAGNOSIS: Infected intrathecal pain pump. OPERATIVE PROCEDURE: Removal of intrathecal pain pump including battery/pump, tubing from the intrathecal catheter. PREOPERATIVE MEDICATION: Vancomycin 500 mg IV. DRAIN NUMBER: Zero. DRAIN TYPE: None. DESCRIPTION OF OPERATION: The patient was brought to the operating room. General endotracheal anesthesia was induced. The patient was positioned in a left lateral decubitus position on a ríos bag and all pressure points were padded. We identified the dehiscence which allowed us to visualize his pain pump anteriorly. We palpated the tract of the pump and marked it out and with AP fluoro radiograph, I identified the entry point between L1 and L2 laminae. We marked this out as well. The anterior abdomen and the flank and the thoracolumbar skin were sterilely prepped and draped. We opened our anterior incision with a 10 blade knife and removed the pain pump. We swabbed it for cultures. We tried to remove the entire catheter through the front incision, but there was a fracture of the catheter in the flank. We irrigated with bacitracin irrigation. We debrided the entire pocket. There was a thick rind of nonvascular gelatinous-type material all the way around the pocket, which was debrided back to healthy fat and muscle with curettes. We irrigated with bacitracin irrigation. We then changed our gloves and entered the spinal incision. We opened at the 1-2 interspace and immediately encountered the tubing there. We removed the intrathecal portion of the device and there was some CSF egress. We pulled back on the portion of the catheter tunneled through the flank and it was out once again. We turned our attention to CSF control. A hemostat was placed on the catheter tract and there was no CSF egress even with Valsalva with the hemostat in place. We then tied Vicryl sutures around the hemostat and we removed the clamp and tightened down our sutures. There was no further CSF egress. Valsalva was administered and it was completely dry. We then made a good jared effort to remove the infected catheter around the flank. This had dense granulation tissue around it circumferentially and I had to open 3 flank incisions to remove it. The catheter fractured multiple times. We removed as much as we could possibly palpate and tunnel. The tract itself was dense and calcified and we irrigated all of our wounds with bacitracin irrigation. We treated the wound with vancomycin powder. We closed them all in anatomical layers and we applied a sterile dressing. This was a grossly contaminated case, type 4. Job ID: [id number]
[2019-04-18] MEDS: glipiZIDE 10 MG TAB PO SCH ×2 (12:00→15:34)
[2019-04-18] MEDS: Rosuvastatin 10 MG TAB PO SCH ×2 (12:00→21:15)
[2019-04-18] MEDS: Pregabalin 75 MG CAP PO SCH ×2 (12:00→21:14)
[2019-04-18] MEDS: Cyclobenzaprine 10 MG TAB PO SCH ×3 (12:01→21:15)
[2019-04-18] MEDS: oxyCODONE 5 MG TAB PO SCH ×2 (12:01→21:13)
[2019-04-18] MEDS: Famotidine 20 MG TAB PO SCH (12:02)
[2019-04-18] MEDS: Enoxaparin Sodium 40 MG/0.4 ML SYRINGE SC SCH (12:02)
[2019-04-18] MEDS: Tamsulosin HCl 0.4 MG CAP PO SCH (12:02)
[2019-04-18] MEDS: HumaLOG 300 UNITS/3 ML VIAL SC PRN ×2 (12:03→16:45)
[2019-04-18 12:35] LABS: #Eosinphils 0.3 thou/uL (0.0-0.7); #Lymphocytes 2.1 thou/uL (1.20-3.40); #Monocytes 0.4 thou/uL (0.11-0.59); #Neutrophils 3.8 thou/uL (1.40-6.50); %Basophils 0.6 % (0.0-1.0); %Eosinophils 3.9 % (0.0-10.0); %Lymphocytes 31.5 % (21.0-51.0); %Monocytes 6.5 % (0.0-10.0); %Neutrophils 57.4 % (42.0-75.0); Hemoglobin 9.2 g/dL (14.0-18.0); INR-International Normal Ratio 1.1; Mean Corpuscular HGB CONC 31.4 g/dL (32.0-36.0); Mean Corpuscular Hemoglobin 27.3 pg (27.0-31.0); Mean Corpuscular Volume 86.9 fL (78.0-98.0); Mean Platelet Volume 7.4 fL (7.4-10.4); PTT 40.5 SEC (22.9-36.1); Platelet Count 203 thou/uL (130-400); Prothrombin Time 14.1 SEC (12.0-14.7); RBC Distribution Width 13.9 % (11.5-14.5); Red Blood Cell (RBC) Count 3.35 mill/uL (4.70-6.10); White Blood Cell (WBC) Count 6.6 thou/uL (4.8-10.8)
[2019-04-18 12:47] LABS: ALT (SGPT) Less than 7 U/L (8-55); AST (SGOT) 9 U/L (5-34); Albumin 3.1 g/dL (3.4-4.8); Alkaline Phosphatase 67 U/L (40-150); Anion Gap 11 mmol/L (10-20); BUN (Urea Nitrogen) 18 mg/dL (8.4-25.7); Bilirubin, Total 0.3 mg/dL (0.2-1.2); Calc. Creatinine Clearance 76 mL/min (70-130); Calcium 9.1 mg/dL (7.8-10.44); Carbon Dioxide 24 mmol/L (23-31); Chloride 112 mmol/L (98-107); Estimated GFR-MDRD 72; Globulin 3.6 g/dL (2.4-3.5); Glucose 197 mg/dL (83-110); Protein, Total 6.7 g/dL (5.8-8.1); Sodium 143 mmol/L (136-145)
--- NOTE | 2019-04-18 13:42 | PDOC.HOSPP ---
- Subjective Subjective: is post op, no sob or chest pain - Objective Vital Signs & Weight: Vital Signs (12 hours) Temp Pulse Resp BP Pulse Ox 04/18/19 12:00 97.9 F 61 18 110/64 97 04/18/19 08:00 93 L 04/18/19 05:30 75 147/75 H 04/18/19 03:45 97.7 F 79 20 122/75 93 L Weight Weight 185 lb I&O: 04/17/19 04/18/19 04/19/19 06:59 06:59 06:59 Intake Total 3049 3520 Output Total 4125 3000 Balance -1076 520 Result Diagrams: 04/18/19 12:20 04/18/19 12:20 Additional Labs: Accuchecks 04/18/19 04/18/19 04/17/19 11:46 06:06 20:27 POC Glucose 210 H 134 H 215 H 04/17/19 17:10 POC Glucose 155 H ROS - Review of Systems All systems: All other ROS were reviewed and found negative. - Medication Medications: Active Medications Generic Name Dose Route Start Last Admin Trade Name Freq PRN Reason Stop Dose Admin Acetaminophen 650 mg 04/11/19 07:53 04/12/19 20:05 Tylenol PO 650 mg Q4H PRN Administration Headache/Fever/Mild Pain (1-3) Hydrocodone Bitart/Acetaminophen 1 tab 04/11/19 07:53 04/13/19 11:43 [place] 5/325 PO 1 tab Q4H PRN Administration Moderate Pain (4-6) Cyclobenzaprine HCl 10 mg 04/11/19 09:00 04/18/19 12:01 Flexeril PO 10 mg TID DMITRY Administration Enoxaparin Sodium 40 mg 04/13/19 09:00 04/18/19 12:02 Lovenox SC Not Given 0900 DMITRY Famotidine 20 mg 04/11/19 09:00 04/18/19 12:02 Pepcid PO 20 mg Q24HR DMITRY Administration Glipizide 10 mg 04/11/19 16:30 04/18/19 12:00 Glucotrol PO Not Given BID-AC DMITRY Sodium Chloride 1,000 mls @ 75 mls/hr 04/11/19 12:00 04/18/19 04:26 Normal Saline 0.9% IV Not Given .[id number] DMITRY Vancomycin HCl 1.25 gm/ Sodium 250 mls @ 166.667 mls/hr 04/17/19 22:00 22:36 Chloride IVPB 250 mls 2200 DMITRY Administration Insulin Human Lispro 0 units 04/11/19 07:53 04/18/19 12:03 Humalog SC 4 unit .MODERATE SLIDING SC PRN Administration Moderate Correctional Scale Insulin Human Lispro 0 units 04/11/19 07:53 04/16/19 21:05 Humalog SC 2 unit .BEDTIME SLIDING SC PRN Administration Bedtime Correctional Scale Metoprolol Tartrate 12.5 mg 04/11/19 09:00 04/18/19 05:34 Lopressor PO 12.5 mg BID DMITRY Administration Oxycodone HCl 10 mg 04/11/19 09:00 04/18/19 12:01 Oxycodone Ir PO 10 mg BID DMITRY Administration Pregabalin 300 mg 04/11/19 09:00 04/18/19 12:00 Lyrica PO 300 mg BID DMITRY Administration Rosuvastatin Calcium 10 mg 04/11/19 09:00 04/18/19 12:00 Crestor PO 10 mg QAM DMITRY Administration Rosuvastatin Calcium 10 mg 04/11/19 21:00 04/17/19 22:32 Crestor PO 10 mg HS DMITRY Administration Tamsulosin HCl 0.4 mg 04/11/19 09:00 04/18/19 12:02 Flomax PO 0.4 mg QAM DMITRY Administration - Exam awake alert Eye: PERRL, anicteric sclera ENT: no oropharyngeal lesions, dry oral mucosa Neck: supple, no JVD Heart: RRR, no gallops Respiratory: no wheezes, no rales Gastrointestinal: soft, non-distended Extremities: no cyanosis, no clubbing, no edema Skin: normal turgor, no lesions Neurological: CN's grossly intact, no focal deficits Musculoskeletal: normal tone, normal strength Hosp A/P (1) Cellulitis Code(s): L03.90 - CELLULITIS, UNSPECIFIED Status: Acute Qualifiers: Site of cellulitis of trunk: abdominal wall Plan: s/p extraction of pain pump 04/18/2019 (2) DM type 2 (diabetes mellitus, type 2) Status: Chronic Qualifiers: Diabetes mellitus chcf insulin use: without chcf use Diabetes mellitus complication status: with other specified complication Qualified Code (s): E11.69 - Type 2 diabetes mellitus with other specified complication (3) Anemia, normocytic normochromic Code(s): D64.9 - ANEMIA, UNSPECIFIED Status: Chronic (4) BPH (benign prostatic hyperplasia) Code(s): N40.0 - BENIGN PROSTATIC HYPERPLASIA WITHOUT LOWER URINRY TRACT SYMP Status: Chronic Qualifiers: Lower urinary tract symptom presence: symptoms absent Qualified Code(s): N40.0 - Benign prostatic hyperplasia without lower urinary tract symptoms (5) Chronic pain disorder Code(s): G89.4 - CHRONIC PAIN SYNDROME Status: Chronic (6) Chronic stage c diastolic heart failure Code(s): I50.32 - CHRONIC DIASTOLIC (CONGESTIVE) HEART FAILURE Status: Chronic (7) Dyslipidemia Code(s): E78.5 - HYPERLIPIDEMIA, UNSPECIFIED Status: Chronic (8) GERD (gastroesophageal reflux disease) Code(s): K21.9 - GASTRO-ESOPHAGEAL REFLUX DISEASE WITHOUT ESOPHAGITIS Status: Chronic Qualifiers: Esophagitis presence: esophagitis presence not specified Qualified Code(s) : K21.9 - Gastro-esophageal reflux disease without esophagitis (9) Pacemaker Code(s): Z95.0 - PRESENCE OF CARDIAC PACEMAKER Status: Chronic - Plan hemostable Anesthesia consultation for pain mgmt/opioid withdrawal with removal of morphine pump continue oxycodone, lyrica, lopressor, glipizide, flexeril and crestor on vanc
[2019-04-18] MEDS ORDERED: PHENYLEPHRINE-NS 100 MCG/ML 10 ML SYRINGE ONE (15:47)
[2019-04-18] MEDS ORDERED: Lidocaine 1% PF 5 ML VIAL ONE (15:47)
[2019-04-18] MEDS ORDERED: Ondansetron PF 4 MG/2 ML Vial ONE (15:47)
[2019-04-18] MEDS ORDERED: ePHEDrine 50 MG/ML VIAL ONE (15:47)
[2019-04-18] MEDS ORDERED: PROPOFOL 200 MG/20 ML VIAL ONE (15:47)
[2019-04-18] MEDS ORDERED: Rocuronium Bromide 10 MG/ML (10ML VIAL) ONE (15:47)
[2019-04-18] MEDS ORDERED: Glycopyrrolate 0.2 MG/ML 5 ML SYRINGE ONE (15:47)
--- NOTE | 2019-04-18 17:13 | PRG ---
DATE OF SERVICE: 04/18/2019 SUBJECTIVE: Mr. Feldman had the pump removed as well as the catheter. He is feeling well. He denies any headaches. No respiratory symptoms. Minimal abdominal tenderness. OBJECTIVE: VITAL SIGNS: Temperature is normal. GENERAL: He is awake and oriented. LUNGS: Clear. Heart: S1 and S2, regular rate. ABDOMEN: Soft with mild tenderness. LABORATORY DATA: White cell count 6.6, hemoglobin 9.2, platelets 203. Sodium 143, creatinine 1.01. There was a gram-positive cocci identified in the sample from the abdominal area, yet to be fully identified. ASSESSMENT AND DISCUSSION: 1. Coronary artery disease. 2. Ischemic cardiomyopathy. 3. Sick sinus syndrome, pacemaker. 4. Chronic low back pain with morphine pump with inflammatory changes in sinus tract. The patient had the device removed and the catheter and now, we will wait for the final identification. Probably, it is going to returned case inspector to be group A strep. In that case, we would be able to switch him to oral penicillin or Keflex for discharge planning with wound management. Job ID: [id number]
[2019-04-18] MEDS: Vancomycin HCl 1.25 GM in Sodium Chloride 0.9% 250 ML 250 ML IVPB SCH (21:13)
[2019-04-19] MEDS: Sodium Chloride 0.9% 1,000 ML IV SCH (06:15)
[2019-04-19] MEDS: HumaLOG 300 UNITS/3 ML VIAL SC PRN ×3 (06:16→21:24)
[2019-04-19] MEDS: glipiZIDE 10 MG TAB PO SCH ×2 (08:09→16:41)
[2019-04-19] MEDS: Pregabalin 75 MG CAP PO SCH ×2 (08:10→21:21)
[2019-04-19] MEDS: Rosuvastatin 10 MG TAB PO SCH ×2 (08:10→21:21)
[2019-04-19] MEDS: Tamsulosin HCl 0.4 MG CAP PO SCH (08:11)
[2019-04-19] MEDS: oxyCODONE 5 MG TAB PO SCH ×2 (08:11→21:22)
[2019-04-19] MEDS: Metoprolol Tartrate 25 MG TAB PO SCH ×2 (08:11→21:22)
[2019-04-19] MEDS: Cyclobenzaprine 10 MG TAB PO SCH ×3 (08:11→21:23)
[2019-04-19] MEDS: Enoxaparin Sodium 40 MG/0.4 ML SYRINGE SC SCH (08:12)
[2019-04-19] MEDS: Famotidine 20 MG TAB PO SCH (08:12)
--- NOTE | 2019-04-19 13:21 | PRG ---
DATE OF SERVICE: 04/19/2019 Mr. Feldman is one day out of surgical removal of pain pump and tubing. I am seeing him this morning in his hospital room. He is resting comfortably, watching TV. He complains of a little abdominal soreness where the incisions are, but otherwise he is doing well. He does have some concern about what he is going to do now that the pain pump is out and he will not have his morphine anymore. We discussed that Pain Management would be able to work with him about dealing with the pain following the removal of this pain pump. He is disappointed that we did not put a new one in. There were no recorded fevers last night. There are no neurologic deficits. He is progressing well. When Infectious Disease has made the determination on medications that he can go home with, he can be discharged to rehab, followup set up in our office in 2 weeks. Job ID: [id number]
--- NOTE | 2019-04-19 17:02 | PDOC.HOSPP ---
- Subjective Subjective: no new symptoms including diarrhea, sob, anxiety, runny nose, insomnia, vomiting or dizziness. No visual disturbances. Slept well last night, has some dyscomfort at operated site. - Objective Vital Signs & Weight: Vital Signs (12 hours) Temp Pulse Resp BP Pulse Ox 04/19/19 08:00 98.0 F 82 18 152/83 H 95 Weight Weight 185 lb I&O: 04/18/19 04/19/19 04/20/19 06:59 06:59 06:59 Intake Total 3520 5800 1600 Output Total 3000 2075 Balance 520 3725 1600 Result Diagrams: 04/18/19 12:20 04/18/19 12:20 Additional Labs: Accuchecks 04/19/19 04/19/19 04/18/19 11:40 04:54 20:22 POC Glucose 213 H 196 H 114 H ROS - Review of Systems All systems: All other ROS were reviewed and found negative. - Medication Medications: Active Medications Generic Name Dose Route Start Last Admin Trade Name Freq PRN Reason Stop Dose Admin Acetaminophen 650 mg 04/11/19 07:53 04/12/19 20:05 Tylenol PO 650 mg Q4H PRN Administration Headache/Fever/Mild Pain (1-3) Hydrocodone Bitart/Acetaminophen 1 tab 04/11/19 07:53 04/13/19 11:43 [place] 5/325 PO 1 tab Q4H PRN Administration Moderate Pain (4-6) Cyclobenzaprine HCl 10 mg 04/11/19 09:00 04/19/19 16:41 Flexeril PO 10 mg TID DMITRY Administration Enoxaparin Sodium 40 mg 04/13/19 09:00 04/19/19 08:12 Lovenox SC 40 mg 0900 DMITRY Administration Famotidine 20 mg 04/11/19 09:00 04/19/19 08:12 Pepcid PO 20 mg Q24HR DMITRY Administration Glipizide 10 mg 04/11/19 16:30 04/19/19 16:41 Glucotrol PO 10 mg BID-AC DMITRY Administration Vancomycin HCl 1.25 gm/ Sodium 250 mls @ 166.667 mls/hr 04/17/19 22:00 21:13 Chloride IVPB 250 mls 2200 DMITRY Administration Insulin Human Lispro 0 units 04/11/19 07:53 04/19/19 12:07 Humalog SC 4 unit .MODERATE SLIDING SC PRN Administration Moderate Correctional Scale Insulin Human Lispro 0 units 04/11/19 07:53 04/16/19 21:05 Humalog SC 2 unit .BEDTIME SLIDING SC PRN Administration Bedtime Correctional Scale Metoprolol Tartrate 12.5 mg 04/11/19 09:00 04/19/19 08:11 Lopressor PO 12.5 mg BID DMITRY Administration Oxycodone HCl 10 mg 04/11/19 09:00 04/19/19 08:11 Oxycodone Ir PO 10 mg BID DMITRY Administration Pregabalin 300 mg 04/11/19 09:00 04/19/19 08:10 Lyrica PO 300 mg BID DMITRY Administration Rosuvastatin Calcium 10 mg 04/11/19 09:00 04/19/19 08:10 Crestor PO 10 mg QAM DMITRY Administration Rosuvastatin Calcium 10 mg 04/11/19 21:00 04/18/19 21:15 Crestor PO 10 mg HS DMITRY Administration Tamsulosin HCl 0.4 mg 04/11/19 09:00 04/19/19 08:11 Flomax PO 0.4 mg QAM DMITRY Administration - Exam NAD, awake alert Eye: PERRL, anicteric sclera ENT: normocephalic atraumatic, moist mucosa Neck: supple, no JVD Heart: RRR, no murmur Respiratory: no wheezes, no rales Gastrointestinal: soft, non-distended, normal bowel sounds Extremities: no cyanosis, no edema Skin: normal turgor, no rashes Neurological: CN's grossly intact, no focal deficits Musculoskeletal: normal tone, normal strength Psychiatric: normal affect, A&O x 3 Hosp A/P (1) Cellulitis Code(s): L03.90 - CELLULITIS, UNSPECIFIED Status: Acute Qualifiers: Site of cellulitis of trunk: abdominal wall Plan: s/p removal of morphine pain pump with intrathecal tubing (2) DM type 2 (diabetes mellitus, type 2) Status: Chronic Qualifiers: Diabetes mellitus terminal operator insulin use: without terminal operator use Diabetes mellitus complication status: with other specified complication Qualified Code (s): E11.69 - Type 2 diabetes mellitus with other specified complication (3) Anemia, normocytic normochromic Code(s): D64.9 - ANEMIA, UNSPECIFIED Status: Chronic (4) BPH (benign prostatic hyperplasia) Code(s): N40.0 - BENIGN PROSTATIC HYPERPLASIA WITHOUT LOWER URINRY TRACT SYMP Status: Chronic Qualifiers: Lower urinary tract symptom presence: symptoms absent Qualified Code(s): N40.0 - Benign prostatic hyperplasia without lower urinary tract symptoms (5) Chronic pain disorder Code(s): G89.4 - CHRONIC PAIN SYNDROME Status: Chronic (6) Chronic stage c diastolic heart failure Code(s): I50.32 - CHRONIC DIASTOLIC (CONGESTIVE) HEART FAILURE Status: Chronic (7) Dyslipidemia Code(s): E78.5 - HYPERLIPIDEMIA, UNSPECIFIED Status: Chronic (8) GERD (gastroesophageal reflux disease) Code(s): K21.9 - GASTRO-ESOPHAGEAL REFLUX DISEASE WITHOUT ESOPHAGITIS Status: Chronic Qualifiers: Esophagitis presence: esophagitis presence not specified Qualified Code(s) : K21.9 - Gastro-esophageal reflux disease without esophagitis (9) Pacemaker Code(s): Z95.0 - PRESENCE OF CARDIAC PACEMAKER Status: Chronic - Plan hemostable no signs or symptoms of opioid withdrawal so far he is stable on oxycodone ir bid with norco for breakthrough may switch to fentanyl if symptoms of opioid withdrawal develop cultures are still pending, prelim gr of enterococcus species is on vancomycin now continue lyrica, flexeril, glipizide, lopressor and crestor dc iv fluids To ambulate as tolerated in hallway dc plan depends on organism growing in culture and sensitivity
[2019-04-19] MEDS: Vancomycin HCl 1.25 GM in Sodium Chloride 0.9% 250 ML 250 ML IVPB SCH (21:23)
[2019-04-20] MEDS: Cyclobenzaprine 10 MG TAB PO SCH ×3 (08:20→20:15)
[2019-04-20] MEDS: Tamsulosin HCl 0.4 MG CAP PO SCH (08:20)
[2019-04-20] MEDS: glipiZIDE 10 MG TAB PO SCH ×2 (08:20→17:47)
[2019-04-20] MEDS: Famotidine 20 MG TAB PO SCH (08:20)
[2019-04-20] MEDS: Rosuvastatin 10 MG TAB PO SCH ×2 (08:20→20:15)
[2019-04-20] MEDS: Metoprolol Tartrate 25 MG TAB PO SCH ×2 (08:21→20:15)
[2019-04-20] MEDS: Enoxaparin Sodium 40 MG/0.4 ML SYRINGE SC SCH (08:21)
[2019-04-20] MEDS: Pregabalin 75 MG CAP PO SCH ×2 (08:21→20:17)
[2019-04-20] MEDS: oxyCODONE 5 MG TAB PO SCH ×2 (08:23→20:16)
[2019-04-20] MEDS: HumaLOG 300 UNITS/3 ML VIAL SC PRN ×2 (12:39→17:48)
--- NOTE | 2019-04-20 13:35 | PDOC.HOSPP ---
- Subjective Subjective: no pain, feels good. is ambulating in room - Objective Vital Signs & Weight: Vital Signs (12 hours) Temp Pulse Resp BP Pulse Ox 04/20/19 08:20 93 L 04/20/19 07:39 97.7 F 84 20 146/66 H 93 L Weight Weight 185 lb I&O: 04/19/19 04/20/19 04/21/19 06:59 06:59 06:59 Intake Total 5800 6405 Output Total 2075 1550 Balance 3725 4855 Result Diagrams: 04/18/19 12:20 04/18/19 12:20 Additional Labs: Accuchecks 04/20/19 04/20/19 04/19/19 11:30 05:22 19:57 POC Glucose 355 H 124 H 332 H 04/19/19 16:50 POC Glucose 138 H ROS - Review of Systems All systems: All other ROS were reviewed and found negative. - Medication Medications: Active Medications Generic Name Dose Route Start Last Admin Trade Name Freq PRN Reason Stop Dose Admin Acetaminophen 650 mg 04/11/19 07:53 04/12/19 20:05 Tylenol PO 650 mg Q4H PRN Administration Headache/Fever/Mild Pain (1-3) Hydrocodone Bitart/Acetaminophen 1 tab 04/11/19 07:53 04/13/19 11:43 [place] 5/325 PO 1 tab Q4H PRN Administration Moderate Pain (4-6) Cyclobenzaprine HCl 10 mg 04/11/19 09:00 04/20/19 08:20 Flexeril PO 10 mg TID DMITRY Administration Enoxaparin Sodium 40 mg 04/13/19 09:00 04/20/19 08:21 Lovenox SC 40 mg 0900 DMITRY Administration Famotidine 20 mg 04/11/19 09:00 04/20/19 08:20 Pepcid PO 20 mg Q24HR DMITRY Administration Glipizide 10 mg 04/11/19 16:30 04/20/19 08:20 Glucotrol PO 10 mg BID-AC DMITRY Administration Vancomycin HCl 1.25 gm/ Sodium 250 mls @ 166.667 mls/hr 04/17/19 22:00 21:23 Chloride IVPB 250 mls 2200 DMITRY Administration Insulin Human Lispro 0 units 04/11/19 07:53 04/20/19 12:39 Humalog SC 10 unit .MODERATE SLIDING SC PRN Administration Moderate Correctional Scale Insulin Human Lispro 0 units 04/11/19 07:53 04/19/19 21:24 Humalog SC 4 unit .BEDTIME SLIDING SC PRN Administration Bedtime Correctional Scale Metoprolol Tartrate 12.5 mg 04/11/19 09:00 04/20/19 08:21 Lopressor PO 12.5 mg BID DMITRY Administration Oxycodone HCl 10 mg 04/11/19 09:00 04/20/19 08:23 Oxycodone Ir PO 10 mg BID DMITRY Administration Pregabalin 300 mg 04/11/19 09:00 04/20/19 08:21 Lyrica PO 300 mg BID DMITRY Administration Rosuvastatin Calcium 10 mg 04/11/19 09:00 04/20/19 08:20 Crestor PO 10 mg QAM DMITRY Administration Rosuvastatin Calcium 10 mg 04/11/19 21:00 04/19/19 21:21 Crestor PO 10 mg HS DMITRY Administration Tamsulosin HCl 0.4 mg 04/11/19 09:00 04/20/19 08:20 Flomax PO 0.4 mg QAM DMITRY Administration - Exam NAD, awake alert Eye: PERRL, anicteric sclera ENT: no oropharyngeal lesions, moist mucosa Neck: supple, no JVD Heart: RRR, no murmur Respiratory: no wheezes, no rales Gastrointestinal: soft, non-tender, normal bowel sounds Extremities: no cyanosis, no edema Skin: normal turgor, no lesions Neurological: CN's grossly intact, no focal deficits Musculoskeletal: normal tone, no muscle wasting Psychiatric: normal affect, A&O x 3 Hosp A/P (1) Cellulitis Code(s): L03.90 - CELLULITIS, UNSPECIFIED Status: Acute Qualifiers: Site of cellulitis of trunk: abdominal wall (2) DM type 2 (diabetes mellitus, type 2) Status: Chronic Qualifiers: Diabetes mellitus mcc insulin use: without mcc use Diabetes mellitus complication status: with other specified complication Qualified Code (s): E11.69 - Type 2 diabetes mellitus with other specified complication (3) Anemia, normocytic normochromic Code(s): D64.9 - ANEMIA, UNSPECIFIED Status: Chronic (4) BPH (benign prostatic hyperplasia) Code(s): N40.0 - BENIGN PROSTATIC HYPERPLASIA WITHOUT LOWER URINRY TRACT SYMP Status: Chronic Qualifiers: Lower urinary tract symptom presence: symptoms absent Qualified Code(s): N40.0 - Benign prostatic hyperplasia without lower urinary tract symptoms (5) Chronic pain disorder Code(s): G89.4 - CHRONIC PAIN SYNDROME Status: Chronic (6) Chronic stage c diastolic heart failure Code(s): I50.32 - CHRONIC DIASTOLIC (CONGESTIVE) HEART FAILURE Status: Chronic (7) Dyslipidemia Code(s): E78.5 - HYPERLIPIDEMIA, UNSPECIFIED Status: Chronic (8) GERD (gastroesophageal reflux disease) Code(s): K21.9 - GASTRO-ESOPHAGEAL REFLUX DISEASE WITHOUT ESOPHAGITIS Status: Chronic Qualifiers: Esophagitis presence: esophagitis presence not specified Qualified Code(s) : K21.9 - Gastro-esophageal reflux disease without esophagitis (9) Pacemaker Code(s): Z95.0 - PRESENCE OF CARDIAC PACEMAKER Status: Chronic - Plan had his morphine pain pump removed 2 days back on oxycodone bid, narco prn continue flexeril, lyrica, glipizide, lopressor, crestor On vanc, is growing enterococcus and strep, await sensitivities
--- NOTE | 2019-04-20 14:24 | PRG ---
DATE OF SERVICE: 04/20/2019 This is Bill Alva PA-C dictating a report for Pascual Portillo MD. Mr. Feldman is now postoperative day #2 having undergone removal of infected pain pump. He is on vancomycin. Today, he states he is feeling good. He denies headache. He has had some improvement in his back pain. By report, he has had no drainage on his dressing. He moves all extremities well. He is sitting up in bed eating breakfast. We will continue to monitor the patient's neurologic status. Overall, he is improving neurosurgically. Infectious Disease continues to see the patient. We will also defer further pain management to the patient's established sign painter. He will likely need inpatient rehab, and he will be ready for this once arrangements have been made, he is cleared by Infectious Disease as well as Medicine. I should note that his abdominal swabs have been consistent with nonhemolytic Streptococcus and Enterococcus, and there has been no growth in his CSF, which is certainly good for him. Please call with any changes in the patient's neurologic status. Otherwise, Neurosurgery will continue to follow. Job ID: [id number]
[2019-04-20 16:46] VITALS: BMI 24.5
[2019-04-20] MEDS ORDERED: metFORMIN 500 MG TAB PO SCH (17:00)
[2019-04-20 21:21] LABS: Vancomycin, Trough 20.9 ug/mL
[2019-04-20] MEDS ORDERED: Clopidogrel Bisulfate 75 MG TAB ONE (22:04)
[2019-04-20] MEDS: Vancomycin HCl 1.25 GM in Sodium Chloride 0.9% 250 ML 250 ML IVPB SCH (22:19)
[2019-04-21] MEDS: Rosuvastatin 10 MG TAB PO SCH ×2 (08:58→20:15)
[2019-04-21] MEDS: Cyclobenzaprine 10 MG TAB PO SCH ×3 (08:58→20:15)
[2019-04-21] MEDS: Metoprolol Tartrate 25 MG TAB PO SCH ×2 (08:58→20:16)
[2019-04-21] MEDS: Tamsulosin HCl 0.4 MG CAP PO SCH (08:58)
[2019-04-21] MEDS: glipiZIDE 10 MG TAB PO SCH ×2 (08:58→16:54)
[2019-04-21] MEDS: Famotidine 20 MG TAB PO SCH (08:58)
[2019-04-21] MEDS: oxyCODONE 5 MG TAB PO SCH ×2 (08:59→20:17)
[2019-04-21] MEDS: Enoxaparin Sodium 40 MG/0.4 ML SYRINGE SC SCH (08:59)
[2019-04-21] MEDS: Pregabalin 75 MG CAP PO SCH ×2 (08:59→20:14)
[2019-04-21] MEDS ORDERED: Clopidogrel Bisulfate 75 MG TAB ONE (12:39)
[2019-04-21] MEDS: HumaLOG 300 UNITS/3 ML VIAL SC PRN ×2 (12:59→20:19)
[2019-04-21] MEDS: Ampicillin 2 GM in Sodium Chloride 0.9% 100 ML IVPB SCH ×3 (13:00→23:19)
--- NOTE | 2019-04-21 14:49 | PDOC.HOSPP ---
- Subjective Subjective: awake, sitting in chair says his pain is well controlled on current oxycodone - Objective Vital Signs & Weight: Vital Signs (12 hours) Temp Pulse Resp BP Pulse Ox 04/21/19 08:55 95 04/21/19 07:36 97.6 F 79 20 128/68 95 Weight Admit Weight 185 lb Weight 185 lb I&O: 04/20/19 04/21/19 04/22/19 06:59 06:59 06:59 Intake Total 6405 2410 Output Total 1550 3100 Balance 4855 -690 Result Diagrams: 04/18/19 12:20 04/18/19 12:20 Additional Labs: Accuchecks 04/21/19 04/21/19 04/20/19 11:19 05:23 19:47 POC Glucose 282 H 133 H 129 H 04/20/19 16:44 POC Glucose 229 H ROS - Review of Systems All systems: All other ROS were reviewed and found negative. - Medication Medications: Active Medications Generic Name Dose Route Start Last Admin Trade Name Freq PRN Reason Stop Dose Admin Acetaminophen 650 mg 04/11/19 07:53 04/12/19 20:05 Tylenol PO 650 mg Q4H PRN Administration Headache/Fever/Mild Pain (1-3) Hydrocodone Bitart/Acetaminophen 1 tab 04/11/19 07:53 04/13/19 11:43 Colton 5/325 PO 1 tab Q4H PRN Administration Moderate Pain (4-6) Cyclobenzaprine HCl 10 mg 04/11/19 09:00 04/21/19 08:58 Flexeril PO 10 mg TID DMITRY Administration Enoxaparin Sodium 40 mg 04/13/19 09:00 04/21/19 08:59 Lovenox SC 40 mg 0900 DMITRY Administration Famotidine 20 mg 04/11/19 09:00 04/21/19 08:58 Pepcid PO 20 mg Q24HR DMITRY Administration Glipizide 10 mg 04/11/19 16:30 04/21/19 08:58 Glucotrol PO 10 mg BID-AC DMITRY Administration Ampicillin Sodium 2 gm/ Sodium 100 mls @ 200 mls/hr 04/21/19 12:00 04/21/19 13:00 Chloride IVPB 100 mls Q6HR DMITRY Administration Insulin Human Lispro 0 units 04/11/19 07:53 04/21/19 12:59 Humalog SC 6 unit .MODERATE SLIDING SC PRN Administration Moderate Correctional Scale Insulin Human Lispro 0 units 04/11/19 07:53 04/19/19 21:24 Humalog SC 4 unit .BEDTIME SLIDING SC PRN Administration Bedtime Correctional Scale Metoprolol Tartrate 12.5 mg 04/11/19 09:00 04/21/19 08:58 Lopressor PO 12.5 mg BID DMITRY Administration Oxycodone HCl 10 mg 04/11/19 09:00 04/21/19 08:59 Oxycodone Ir PO 10 mg BID DMITRY Administration Pregabalin 300 mg 04/11/19 09:00 04/21/19 08:59 Lyrica PO 300 mg BID DMITRY Administration Rosuvastatin Calcium 10 mg 04/11/19 09:00 04/21/19 08:58 Crestor PO 10 mg QAM DMITRY Administration Rosuvastatin Calcium 10 mg 04/11/19 21:00 04/20/19 20:15 Crestor PO 10 mg HS DMITRY Administration Tamsulosin HCl 0.4 mg 04/11/19 09:00 04/21/19 08:58 Flomax PO 0.4 mg QAM DMITRY Administration - Exam NAD, awake alert Eye: PERRL, anicteric sclera ENT: no oropharyngeal lesions, moist mucosa Neck: supple, no JVD Heart: RRR, no murmur Respiratory: no wheezes, no rales Gastrointestinal: soft, non-tender, normal bowel sounds Extremities: no clubbing, no edema Neurological: CN's grossly intact, no focal deficits Musculoskeletal: normal tone, normal strength Psychiatric: normal affect, A&O x 3 Hosp A/P (1) Cellulitis Code(s): L03.90 - CELLULITIS, UNSPECIFIED Status: Acute Qualifiers: Site of cellulitis of trunk: abdominal wall (2) DM type 2 (diabetes mellitus, type 2) Status: Chronic Qualifiers: Diabetes mellitus remote computer terminal operator insulin use: without remote computer terminal operator use Diabetes mellitus complication status: with other specified complication Qualified Code (s): E11.69 - Type 2 diabetes mellitus with other specified complication (3) Anemia, normocytic normochromic Code(s): D64.9 - ANEMIA, UNSPECIFIED Status: Chronic (4) BPH (benign prostatic hyperplasia) Code(s): N40.0 - BENIGN PROSTATIC HYPERPLASIA WITHOUT LOWER URINRY TRACT SYMP Status: Chronic Qualifiers: Lower urinary tract symptom presence: symptoms absent Qualified Code(s): N40.0 - Benign prostatic hyperplasia without lower urinary tract symptoms (5) Chronic pain disorder Code(s): G89.4 - CHRONIC PAIN SYNDROME Status: Chronic (6) Chronic stage c diastolic heart failure Code(s): I50.32 - CHRONIC DIASTOLIC (CONGESTIVE) HEART FAILURE Status: Chronic (7) Dyslipidemia Code(s): E78.5 - HYPERLIPIDEMIA, UNSPECIFIED Status: Chronic (8) GERD (gastroesophageal reflux disease) Code(s): K21.9 - GASTRO-ESOPHAGEAL REFLUX DISEASE WITHOUT ESOPHAGITIS Status: Chronic Qualifiers: Esophagitis presence: esophagitis presence not specified Qualified Code(s) : K21.9 - Gastro-esophageal reflux disease without esophagitis (9) Pacemaker Code(s): Z95.0 - PRESENCE OF CARDIAC PACEMAKER Status: Chronic - Plan wound cs are growing enterococus and strep both sensitive to ampicillin, d/w antibiotics x 12 days likely dc plan this afternoon d/w daughter over phone and stressed the importance of having a close f/u with his pain specialist in [facility] lyrica, lopressor, crestor, glipizide, flexeril
--- NOTE | 2019-04-21 15:31 | PRG ---
DATE OF SERVICE: 04/21/2019 SUBJECTIVE: Feeling well. Oriented. No headaches. No respiratory symptoms. Minimal abdominal tenderness at the site of the pump wound. OBJECTIVE: VITAL SIGNS: Normal. He has been afebrile. HEENT: Ocular movements conjugate. LUNGS: Clear. HEART: S1 and S2 regular rate. ABDOMEN: With wound and stitches. The device has been removed and the wound was clean and basically closed by the surgeon. LABORATORY DATA: His white cell count 6.6, hemoglobin 9.2. Chemistry with a creatinine of 1.01. Microbiology with E faecalis usual broad susceptibility. ASSESSMENT AND DISCUSSION: Coronary artery disease, ischemic cardiomyopathy, sick sinus syndrome, chronic low back pain with morphine pump with infection, sinus tract, and exposure of the device. The device has been removed. Catheter removed. No evidence of CSF involvement. At this point, would transition him to oral amoxicillin for discharge planning. Treat for about 7 days approximately. Job ID: [id number]
--- NOTE | 2019-04-21 18:26 | PRG ---
DATE OF SERVICE: 04/21/2019 This is Bill Alva PA-C dictating a report for Pascual Portillo MD. Mr. Feldman is now postoperative day #6 having undergone removal of infected pain pump with Dr. Castro. Per his microbiology, his abdomen swabs were consistent with Enterococcus. Dr. Umaña has been on his case and is providing the appropriate antibiotics. From neurosurgical standpoint, the patient is doing well. He has had no reported drainage from his incisions. He has no headache. He is actually feeling much better and less sore today. According to Dr. Umaña, he will be on amoxicillin for the next 7 days. From neurosurgical standpoint, again the patient is doing well with good strength in all the extremities and he has better pain control. He is ready for discharge from neurosurgical standpoint at any time. Job ID: [id number]
[2019-04-22] MEDS: Ampicillin 2 GM in Sodium Chloride 0.9% 100 ML IVPB SCH (05:05)
[2019-04-22] MEDS: HumaLOG 300 UNITS/3 ML VIAL SC PRN ×2 (05:09→12:02)
[2019-04-22 08:25] VITALS: BP 124/76; TEMP 97.5
[2019-04-22] MEDS: oxyCODONE 5 MG TAB PO SCH (08:51)
[2019-04-22] MEDS: Pregabalin 75 MG CAP PO SCH (08:52)
[2019-04-22] MEDS: Tamsulosin HCl 0.4 MG CAP PO SCH (08:54)
[2019-04-22] MEDS: glipiZIDE 10 MG TAB PO SCH (08:54)
[2019-04-22] MEDS: Metoprolol Tartrate 25 MG TAB PO SCH (08:54)
[2019-04-22] MEDS: Cyclobenzaprine 10 MG TAB PO SCH (08:54)
[2019-04-22] MEDS: Famotidine 20 MG TAB PO SCH (08:55)
[2019-04-22] MEDS: Enoxaparin Sodium 40 MG/0.4 ML SYRINGE SC SCH (08:56)
--- NOTE | 2019-04-22 13:26 | PDOC.HOSPP ---
- Subjective Subjective: sitting in chair, no sob or pain feels better - Objective Vital Signs & Weight: Vital Signs (12 hours) Temp Pulse Resp BP Pulse Ox 04/22/19 08:00 97.5 F L 79 18 124/76 96 Weight Admit Weight 185 lb Weight 185 lb I&O: 04/21/19 04/22/19 04/23/19 06:59 06:59 06:59 Intake Total 2410 3300 480 Output Total 3100 3350 300 Balance -690 -50 180 Result Diagrams: 04/18/19 12:20 04/18/19 12:20 Additional Labs: Accuchecks 04/22/19 04/22/19 04/21/19 11:40 05:05 19:49 POC Glucose 246 H 188 H 218 H 04/21/19 16:41 POC Glucose 185 H ROS - Review of Systems All systems: All other ROS were reviewed and found negative. - Exam NAD, awake alert Eye: PERRL, anicteric sclera ENT: normocephalic atraumatic, no oropharyngeal lesions Neck: supple, no JVD Heart: RRR, no murmur Respiratory: no wheezes, no rales Gastrointestinal: soft, non-distended, normal bowel sounds Extremities: no clubbing, no edema Neurological: CN's grossly intact, no focal deficits Musculoskeletal: normal tone, normal strength Psychiatric: normal affect, A&O x 3 Hosp A/P (1) Cellulitis Code(s): L03.90 - CELLULITIS, UNSPECIFIED Status: Acute Qualifiers: Site of cellulitis of trunk: abdominal wall (2) DM type 2 (diabetes mellitus, type 2) Status: Chronic Qualifiers: Diabetes mellitus fpc insulin use: without fpc use Diabetes mellitus complication status: with other specified complication Qualified Code (s): E11.69 - Type 2 diabetes mellitus with other specified complication (3) Anemia, normocytic normochromic Code(s): D64.9 - ANEMIA, UNSPECIFIED Status: Chronic (4) BPH (benign prostatic hyperplasia) Code(s): N40.0 - BENIGN PROSTATIC HYPERPLASIA WITHOUT LOWER URINRY TRACT SYMP Status: Chronic Qualifiers: Lower urinary tract symptom presence: symptoms absent Qualified Code(s): N40.0 - Benign prostatic hyperplasia without lower urinary tract symptoms (5) Chronic pain disorder Code(s): G89.4 - CHRONIC PAIN SYNDROME Status: Chronic (6) Chronic stage c diastolic heart failure Code(s): I50.32 - CHRONIC DIASTOLIC (CONGESTIVE) HEART FAILURE Status: Chronic (7) Dyslipidemia Code(s): E78.5 - HYPERLIPIDEMIA, UNSPECIFIED Status: Chronic (8) GERD (gastroesophageal reflux disease) Code(s): K21.9 - GASTRO-ESOPHAGEAL REFLUX DISEASE WITHOUT ESOPHAGITIS Status: Chronic Qualifiers: Esophagitis presence: esophagitis presence not specified Qualified Code(s) : K21.9 - Gastro-esophageal reflux disease without esophagitis (9) Pacemaker Code(s): Z95.0 - PRESENCE OF CARDIAC PACEMAKER Status: Chronic - Plan hemostable amox tid x 10 days oxycontin er 10mg bid, he needs to make an early appt with his pain specialist in [place] his girlfriend is coming to pick him up to f/u with as adv
--- NOTE | 2019-04-22 20:59 | DIS ---
DATE OF ADMISSION: 04/11/2019 DATE OF DISCHARGE: 04/22/2019 DISCHARGE DISPOSITION: Home. PRIMARY DISCHARGE DIAGNOSES: Indwelling intrathecal morphine pump in the abdominal wall was infected with cellulitis, status post explantation. SECONDARY DISCHARGE DIAGNOSES: Diabetes mellitus type 2, chronic anemia, benign prostatic hypertrophy, chronic pain disorder, chronic back pain, chronic diastolic heart failure, dyslipidemia, gastroesophageal reflux disease, history of pacemaker. PROCEDURES DONE DURING HOSPITALIZATION: The patient has had myelogram done showed radiopaque catheter associated with the pain pump enters the posterior aspect of the central spinal canal at the L1-L2 level and courses along the left and posterior aspect of the thecal sac adjacent to the posterior and left sides of the spinal cord. Superior tip is at the level of T6-T7 interspace. No fluid collections were apparent adjacent to the catheter. No mass producing defects within the thecal sac related to the catheter. Chronic compression of the T3 vertebral body was present with approximately 30% retropulsion. On 04/18/2019, the patient had removal of intrathecal pain pump including battery/pump, tubing and the intrathecal catheter. This was done by Dr. Castro. Abdominal wound cultures have grown Enterococcus faecalis sensitive to ampicillin, resistant to erythromycin and gentamicin. CSF fluid culture showed no growth in 5 days. H and H of 9 and 29, platelet count 203, white count of 6.6, MCV is 86. BUN and creatinine were 18 and 1.0 on the . Albumin 3.1. Tube #1 CSF was colorless and 3 WBC's and 833 RBC's. DISCHARGE MEDICATIONS: 1. Flexeril 10 mg three times daily. 2. Oxycodone extended release 10 mg twice daily. 3. Lopressor 12.5 mg twice daily. 4. Amoxicillin 500 mg p.o. three times daily for 10 days. 5. Flomax 0.4 mg p.o. q.a.m. 6. Crestor 10 mg p.o. at bedtime. 7. Xarelto 20 mg p.o. daily to start from the . 8. Lyrica 300 mg p.o. twice daily. 9. Glipizide 10 mg twice daily. ALLERGIES: NO KNOWN DRUG ALLERGIES. INPATIENT CONSULT: Dr. Castro for Neurosurgery, Dr. Umaña for Infectious Disease. DISCHARGE PLAN: The patient to follow up with his pain specialist in [place] in 1 week. He also needs to follow up with his primary care physician in [address] Castro as advised. BRIEF COURSE DURING HOSPITALIZATION: The patient initially got admitted on the with complaints of pain and swelling along with redness and edema over the morphine pump site on the abdominal wall. He has had recent battery change done by his surgeon with his chronic intrathecal morphine pump. He was essentially admitted for cellulitis with likely infected morphine pump. Wound cultures were obtained. He has had consultation with Dr. Castro for Neurosurgery. He has had thoracic spine myelogram done. He has had explantation of the entire pump with tubing and generator. Wound cultures have grown Enterococcus faecalis sensitive to ampicillin. Per Infectious Disease advice, the patient needs to continue amoxicillin 3 times daily for another 10 days. He was on IV antibiotics all through his stay here. He has not had any morphine/opioid withdrawal. He is on extended release oxycodone twice daily along with Lyrica and Flexeril. He has been cleared for discharge by Dr. Castro. Please see a [id number] documentation for the day of discharge on [facility]. Job ID: [id number] [facility]
== END 2019-04-22 12:56 | disposition home or self-care (01) | DRG 29 ==
LOC: ERS 00:42 → T4-B 01:53 → ERHOLD 01:59 → T4-B 14:52
PROVIDERS: ADMIT Family Medicine; ATTEND Family Medicine
PROC: 00PU03Z Removal of Infusion Device from Spinal Canal, Open Approach (ICD-10-PCS; principal; 2019-04-18)
PROC: 0JPT0VZ Removal of Infusion Pump from Trunk Subcutaneous Tissue and Fascia, Open Approach (ICD-10-PCS; 2019-04-18)
DX: T85.738A Infection and inflammatory reaction due to other nervous system device, implant or graft, initial encounter (principal); I50.32 Chronic diastolic (congestive) heart failure; N17.9 Acute kidney failure, unspecified; Y83.8 Other surgical procedures as the cause of abnormal reaction of the patient, or of later complication, without mention of misadventure at the time of the procedure; E11.9 Type 2 diabetes mellitus without complications; I25.10 Atherosclerotic heart disease of native coronary artery without angina pectoris; D64.9 Anemia, unspecified; N40.0 Benign prostatic hyperplasia without lower urinary tract symptoms; I25.5 Ischemic cardiomyopathy; G89.29 Other chronic pain; I11.0 Hypertensive heart disease with heart failure; E78.5 Hyperlipidemia, unspecified; K21.9 Gastro-esophageal reflux disease without esophagitis; Z95.0 Presence of cardiac pacemaker; Y92.9 Unspecified place or not applicable; Z79.01 Long term (current) use of anticoagulants; Z90.49 Acquired absence of other specified parts of digestive tract; Z87.891 Personal history of nicotine dependence; Z98.1 Arthrodesis status
CPT/HCPCS: 36415; 36416; 72072; 72100; 72129; 72132; 76000; 80048; 80053; 80202; 85025; 85610; 85730; 86140; 87070; 87077; 87186; 87205; 89051; 90471; 90670; 99284; G0009; J0131; J0290; J0670; J0690; J1650; J2001; J2405; J2704; J3010; J3370; J3490; J7050

== ENCOUNTER 2019-04-22 23:02 | Observation (INO) | payer MEDICARE ==
[2019-04-23] MEDS ORDERED: Acetaminophen 325 MG TAB PO PRN (01:39)
[2019-04-23] MEDS ORDERED: Senokot S 8.6-50 MG TAB PO PRN (01:39)
[2019-04-23] MEDS ORDERED: Bisacodyl 5 MG TAB PO PRN (01:39)
[2019-04-23] MEDS ORDERED: Dextrose 50% Abboject 50 ML SYRINGE SLOW IVP PRN (01:40)
[2019-04-23] MEDS ORDERED: Dextrose 5% in Water 1,000 ML IV PRN (01:40)
[2019-04-23 02:06] VITALS: BMI 26.2
--- NOTE | 2019-04-23 04:56 | HP ---
CHIEF COMPLAINT: Cervical neck pain. HISTORY OF PRESENT ILLNESS: The patient is a 73-year-old male, who recently was discharged from our hospital on the 22 of April after he had his infected morphine pump which was removed and he was seen by Infectious Disease and Neurosurgery and was put on oral antibiotics. According to the ER notes, the patient was found at a nearby gas station and started yelling for help and started having some neck pain. Since he did not appear well, at this time, EMS was called and the patient was brought into the ER. The patient's laboratory results were completely normal, however, the patient's friend or girlfriend who was with him at the hotel did not come pick the patient up. The patient's daughter lives in [place]. She was unable to pick him up from the hospital, so at this time, he was admitted into the hospital. EPS has been notified per the nursing staff. The patient does have significant pain of his neck. He also has prescription pain medications, which he currently does not have them. It is his friend or girlfriend, who was staying with him have those prescriptions. PAST MEDICAL HISTORY: 1. CAD. 2. Hypertension. 3. Diabetes type 2. 4. Sick sinus syndrome with pacemaker. 5. Chronic obstructive pulmonary disease. 6. Chronic pain. 7. BPH. 8. Chronic anticoagulation. 9. Dyslipidemia. SURGICAL HISTORY: He has had tonsillectomy; cervical spine surgery; morphine pump, which has been removed; pacemaker placement; six lumbar surgeries; and appendectomy. ALLERGIES: NO KNOWN DRUG ALLERGIES. FAMILY HISTORY: No history of heart disease. SOCIAL HISTORY: He is a former smoker. He denies any illicit drug use or alcohol use. He currently lives with this 20-year-old girl, I am not aware of the situation. This is per ER records. CURRENT MEDICATIONS: He is on; 1. Flexeril 10 mg t.i.d. p.r.n. 2. Glipizide 10 mg b.i.d. 3. Morphine pump which has been removed and has been replaced with long-acting OxyContin. 4. He is also on Lyrica 300 mg b.i.d. 5. Flomax 0.4 mg daily. 6. Metoprolol 12.5 b.i.d. 7. Xarelto 20 mg daily. REVIEW OF SYSTEMS: All negative except for the ones mentioned above in the HPI. PHYSICAL EXAMINATION: VITAL SIGNS: Are as of the following; temperature of 98.3, pulse 85, blood pressure 125/74, respirations 18, oxygen saturation 97% on room air. GENERAL: He is awake, alert, and oriented x3. Does not appear in any distress. HEENT: Normocephalic and atraumatic. No lymphadenopathy noted. Pupils are equal and reactive to light. CV: S1 and S2 present. No murmurs, rubs, or gallops. ABDOMEN: Soft and nontender. Bowel sounds are present x2. He does have an incision which is intact. No redness or erythema has noted. EXTREMITIES: No edema. NEUROVASCULAR: No focal deficits noted. SKIN: He does have abdominal suturing where his pump was removed. No erythema was noted. LABORATORY RESULTS: WBC of 6.6, hemoglobin of 9.2, hematocrit of 29.1, platelets of 203. No BMP was collected. ASSESSMENT AND PLAN: The patient is a 73-year-old male, who presents to the hospital after having neck pain. There was some transient hypotension, however, the blood pressure was 98/60. There was no hypotension. 1. Cervical neck pain. Again, the patient does not have any prescriptions with him. The patient stated that all his prescriptions are with this girl, whom he has been hanging out with, unclear of the relationship and I am not sure if she has taken his prescriptions. We will admit him to the hospital for now under observation since he does not have a safe place to go. Coagulation Operator will be consulted and I will continue his home medications for now. 2. History of recent morphine pump removal. I will continue his antibiotics. 3. Diabetes. We will check Accu-Cheks before meals and at bedtime and continue his medications. 4. Deep venous thrombosis prophylaxis. He is already on Xarelto. We will continue that antibiotic. Job ID: [id number]
[2019-04-23] MEDS: Cyclobenzaprine 10 MG TAB PO SCH ×3 (08:45→20:27)
[2019-04-23] MEDS: AMOXicillin 250 MG CAP PO SCH ×3 (08:45→20:27)
[2019-04-23] MEDS: oxyCODONE ER 10 MG TAB PO SCH ×2 (08:46→20:27)
[2019-04-23] MEDS: Pregabalin 75 MG CAP PO SCH ×2 (08:46→20:26)
[2019-04-23] MEDS: Tamsulosin HCl 0.4 MG CAP PO SCH (08:47)
[2019-04-23 09:52] LABS: #Eosinphils 0.3 thou/uL (0.0-0.7); #Lymphocytes 2.5 thou/uL (1.20-3.40); #Monocytes 0.6 thou/uL (0.11-0.59); %Basophils 0.7 % (0.0-1.0); %Eosinophils 4.1 % (0.0-10.0); %Lymphocytes 39.9 % (21.0-51.0); %Monocytes 8.9 % (0.0-10.0); %Neutrophils 46.5 % (42.0-75.0); Hemoglobin 9.8 g/dL (14.0-18.0); Mean Corpuscular HGB CONC 32.6 g/dL (32.0-36.0); Mean Corpuscular Hemoglobin 27.7 pg (27.0-31.0); Mean Platelet Volume 8.5 fL (7.4-10.4); Platelet Count 191 thou/uL (130-400); RBC Distribution Width 14.4 % (11.5-14.5); Red Blood Cell (RBC) Count 3.53 mill/uL (4.70-6.10); White Blood Cell (WBC) Count 6.4 thou/uL (4.8-10.8)
[2019-04-23 10:18] LABS: Anion Gap 14 mmol/L (10-20); BUN (Urea Nitrogen) 24 mg/dL (8.4-25.7); Calc. Creatinine Clearance 48 mL/min (70-130); Calcium 9.5 mg/dL (7.8-10.44); Carbon Dioxide 24 mmol/L (23-31); Chloride 107 mmol/L (98-107); Estimated GFR-MDRD 45; Glucose 232 mg/dL (83-110); Potassium 3.9 mmol/L (3.5-5.1); Sodium 141 mmol/L (136-145)
--- NOTE | 2019-04-23 14:13 | PDOC.HOSPP ---
- Subjective Subjective: he doesn't recall events exactly as it happened yesterday after he left hospital says his girlfriend took his $700 and left $20 for him. He is not sure if he even made it home yesterday - Objective Vital Signs & Weight: Vital Signs (12 hours) Temp Pulse Resp BP BP BP Pulse Ox 04/23/19 11:00 97.7 F 94 20 136/62 97 04/23/19 07:42 97.8 F 94 20 141/76 H 97 04/23/19 02:13 98.3 F 85 18 125/74 97 Weight Weight 177 lb 6.4 oz I&O: 04/22/19 04/23/19 04/24/19 06:59 06:59 06:59 Intake Total 2080 Output Total 825 Balance 1255 Result Diagrams: 04/23/19 09:00 04/23/19 09:00 Additional Labs: Accuchecks 04/23/19 04:39 POC Glucose 174 H ROS - Review of Systems All systems: All other ROS were reviewed and found negative. - Medication Medications: Active Medications Generic Name Dose Route Start Last Admin Trade Name Mandy PRN Reason Stop Dose Admin Amoxicillin 500 mg 04/23/19 09:00 04/23/19 13:50 Amoxil PO 500 mg TID DMITRY Administration Cyclobenzaprine HCl 10 mg 04/23/19 09:00 04/23/19 13:51 Flexeril PO 10 mg TID DMITRY Administration Oxycodone HCl 10 mg 04/23/19 09:00 04/23/19 08:46 Oxycontin PO 10 mg BID DMITRY Administration Pregabalin 300 mg 04/23/19 09:00 04/23/19 08:46 Lyrica PO 300 mg BID DMITRY Administration Tamsulosin HCl 0.4 mg 04/23/19 09:00 04/23/19 08:47 Flomax PO 0.4 mg QAM DMITRY Administration - Exam NAD, awake alert Eye: PERRL, anicteric sclera ENT: normocephalic atraumatic, moist mucosa Neck: supple, no JVD Heart: RRR, no murmur Respiratory: CTAB, no rales Gastrointestinal: soft, non-tender, normal bowel sounds Extremities: no cyanosis, no clubbing Neurological: CN's grossly intact, no focal deficits Musculoskeletal: normal tone, normal strength Hosp A/P (1) Cellulitis Code(s): L03.90 - CELLULITIS, UNSPECIFIED Status: Acute Qualifiers: Site of cellulitis of trunk: abdominal wall (2) Anemia, normocytic normochromic Code(s): D64.9 - ANEMIA, UNSPECIFIED Status: Chronic (3) BPH (benign prostatic hyperplasia) Code(s): N40.0 - BENIGN PROSTATIC HYPERPLASIA WITHOUT LOWER URINRY TRACT SYMP Status: Chronic Qualifiers: Lower urinary tract symptom presence: symptoms absent Qualified Code(s): N40.0 - Benign prostatic hyperplasia without lower urinary tract symptoms (4) Chronic pain disorder Code(s): G89.4 - CHRONIC PAIN SYNDROME Status: Chronic (5) Chronic stage c diastolic heart failure Code(s): I50.32 - CHRONIC DIASTOLIC (CONGESTIVE) HEART FAILURE Status: Chronic (6) DM type 2 (diabetes mellitus, type 2) Status: Chronic Qualifiers: Diabetes mellitus long term care phlebotomist insulin use: without long term care phlebotomist use Diabetes mellitus complication status: with other specified complication Qualified Code (s): E11.69 - Type 2 diabetes mellitus with other specified complication (7) Dyslipidemia Code(s): E78.5 - HYPERLIPIDEMIA, UNSPECIFIED Status: Chronic (8) GERD (gastroesophageal reflux disease) Code(s): K21.9 - GASTRO-ESOPHAGEAL REFLUX DISEASE WITHOUT ESOPHAGITIS Status: Chronic Qualifiers: Esophagitis presence: esophagitis presence not specified Qualified Code(s) : K21.9 - Gastro-esophageal reflux disease without esophagitis (9) Pacemaker Code(s): Z95.0 - PRESENCE OF CARDIAC PACEMAKER Status: Chronic - Plan hemostable, sbp around 140's this am is eating well will obtain [facility] CM for help with dc plan he has a home in [place] per patient, daughter lives in [place]. Medically stable for dc
--- NOTE | 2019-04-23 15:15 | CT ---
CT Chest WO Con: 04/23/2019 2:16 PM CLINICAL INDICATION: Hemoptysis. COMPARISON: CT thoracic spine dated April 14, 2019. FINDINGS: Lung and Large Airways: There is persistent consolidation of the posterior segment of the right upper lobe with an area of cavitation measuring 3.5 cm. There is a 1.3 cm spiculated nodule in the right upper lobe. There are scattered moderate to severe emphysema. Pleura: No effusion or mass. Vessels: There are scattered vascular calcifications involving thoracic aorta coronary arteries. Ther e is a dual-lead pacemaker overlying left chest wall. Heart: Normal appearing. No pericardial effusion.. Mediastinum and Rachel: Normal. Chest Wall and Lower Neck: Normal. Upper Abdomen: Calcified granuloma within the spleen. Otherwise unremarkable. Bones: Stable compression abnormality at T3. There is scattered degenerative and osteoarthritic keyes e present. IMPRESSION: Posterior right upper lobe airspace consolidation with cavitation is suspicious for pneumonia. Recomm end appropriate therapy and CT follow-up to resolution. After abatement of the patient's acute symptoms, a PET/CT is recommended for the spiculated nodule in the right upper lobe. Moderate to severe emphysema Stable compression abnormality at T3
[2019-04-23 16:52] LABS: Amphetamine Not Detected (NotDetected); Barbiturates Screen Not Detected (NotDetected); Benzodiazepine Screen Not Detected (NotDetected); Cocaine Metabolite Screen Not Detected (NotDetected); Medtox Control Line Valid? VALID (VALID); Medtox Reader # READER 1; Methadone Not Detected (NotDetected); Methamphetamine Not Detected (NotDetected); Opiate Screen Not Detected (NotDetected); Oxycodone Screen Detected (NotDetected); Phencyclidine (PCP) Not Detected (NotDetected); THC/Cannabinoid Screen Not Detected (NotDetected); Tricyclic Screen Not Detected (NotDetected)
[2019-04-23 17:08] LABS: Acetaminophen Less than 6.0 mcg/mL (10.0-30.0); Alcohol Less than 10 mg/dL (Less than 10); Salicylate Less than 8.0 mg/dL (15.0-30.0)
[2019-04-23] MEDS: HumaLOG 300 UNITS/3 ML VIAL SC PRN (17:36)
[2019-04-23] MEDS: Rivaroxaban 10 MG TAB PO SCH (17:36)
[2019-04-23] MEDS ORDERED: Rosuvastatin 10 MG TAB PO SCH (21:00)
[2019-04-24] MEDS: HumaLOG 300 UNITS/3 ML VIAL SC PRN ×3 (05:36→16:23)
[2019-04-24] MEDS: Tamsulosin HCl 0.4 MG CAP PO SCH (08:14)
[2019-04-24] MEDS: Cyclobenzaprine 10 MG TAB PO SCH ×2 (08:14→15:15)
[2019-04-24] MEDS: AMOXicillin 250 MG CAP PO SCH ×2 (08:14→15:15)
[2019-04-24] MEDS: oxyCODONE ER 10 MG TAB PO SCH (08:14)
[2019-04-24] MEDS: Pregabalin 75 MG CAP PO SCH (08:15)
[2019-04-24 11:24] VITALS: TEMP 97.6
[2019-04-24 14:30] LABS: Anion Gap 13 mmol/L (10-20); BUN (Urea Nitrogen) 19 mg/dL (8.4-25.7); Calc. Creatinine Clearance 60 mL/min (70-130); Calcium 9.3 mg/dL (7.8-10.44); Carbon Dioxide 27 mmol/L (23-31); Chloride 106 mmol/L (98-107); Estimated GFR-MDRD 58; Glucose 232 mg/dL (83-110); Potassium 4.6 mmol/L (3.5-5.1); Sodium 141 mmol/L (136-145)
[2019-04-24] MEDS: Rivaroxaban 10 MG TAB PO SCH (17:22)
[2019-04-24 17:57] VITALS: BP 142/88
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
== END 2019-04-24 18:17 | disposition home or self-care (01) ==
LOC: ERS 23:02 → T4-A 04-23 01:37
PROVIDERS: ADMIT Internal Medicine; ATTEND Internal Medicine
DX: G89.29 Other chronic pain (principal); M54.2 Cervicalgia; I10 Essential (primary) hypertension; I25.10 Atherosclerotic heart disease of native coronary artery without angina pectoris; E11.9 Type 2 diabetes mellitus without complications; E78.5 Hyperlipidemia, unspecified; I49.5 Sick sinus syndrome; F17.210 Nicotine dependence, cigarettes, uncomplicated; J44.9 Chronic obstructive pulmonary disease, unspecified; N40.0 Benign prostatic hyperplasia without lower urinary tract symptoms; Z79.01 Long term (current) use of anticoagulants; Z79.899 Other long term (current) drug therapy; Z95.0 Presence of cardiac pacemaker
CPT/HCPCS: 71250; 80048 ×2; 80306; 80307; 82962 ×2; 85025; 97139; 99285; G0378 ×3; 36415; 36416